=== PATIENT | male | born 1965 | race Caucasian/White ===

== ENCOUNTER 2019-04-28 18:05 | Inpatient (IN) | payer OTHER ==
[~2019-04-28] VITALS: Ht 167.6 cm; Wt 104.8 kg
--- OUTSIDE RECORDS SUMMARY | 2019-04-28 18:08 | XMS REPORT ---
Author Author [facility] Address Unknown Phone Unavailable Care Team Providers Care Rubber Tire Curer Name Role Phone Unavailable Unavailable Problems This patient has no known problems. Allergies, Adverse Reactions, Alerts This patient has no known allergies or adverse reactions. Medications This patient has no known medications. Encounters Start Date/Time End Date/Time Encounter Type Admission Type Attending Clinicians [facility] Facility Care Department Encounter ID 2017-07-27 00:00:00 2017-07-28 00:00:00 [facility]patient [facility] [id number]
--- OUTSIDE RECORDS SUMMARY | 2019-04-28 18:08 | XMS REPORT | Clinical Summary ---
Author Author [facility] Address Unknown Phone Unavailable Care Team Providers Care X Ray Equipment Tester Name Role Phone Alfonso Portillo MD PCP Allergies Comments Active Allergy Reactions Severity Noted Date Penicillins 06/08/2017 Medications No known medications Active Problems Problem Noted Date Intracranial mass 06/09/2017 Diabetic ketoacidosis without coma 06/08/2017 Hypokalemia 06/08/2017 Anemia 06/08/2017 Social History Date Tobacco Use Types Packs/Day Years Used Current Every Day Smoker Cigarettes 1 Alcohol Use Drinks/Week oz/Week Comments No Sex Assigned at Date Recorded Not on file Industry Job Start Date Occupation Not on file Not on file Not on file Travel End Travel History Travel Start No recent travel history available. Last Filed Vital Signs Not on file Plan of Treatment Health Maintenance Due Date Last Done Comments DIABETIC RETINAL EYE EXAM 1964 DIABETIC FOOT EXAM 1974 URINE MICROALBUMIN 1974 COLONOSCOPY SCREENING 2014 SHINGLES VACCINES (#1) 2014 INFLUENZA VACCINE 05/20/2019 Results Not on fileafter 04/27/2018 Insurance Type Payer Benefit Subscriber ID Effective Phone Address Plan / Dates Group [facility] MEDICAID [facility] xxxxxxxxx 2017-P COMM STAR+ resent JEFFREY Advance Directives Patient has advance care planning documents on file. For more information, sushma jaffe contact: Jamie Montalvo [address] [place] [id number]
[2019-04-28 19:37] LABS: BASOPHILS # (AUTO) 0.1 (0.0-0.1); BASOPHILS % 1.4 % (0.0-1.0); EOSINOPHILS # (AUTO) 0.3 (0.0-0.4); EOSINOPHILS % 2.8 % (0.0-6.0); HEMATOCRIT 36.1 % (38.2-49.6); HEMOGLOBIN 11.5 g/dL (14.0-18.0); LYMPHOCYTES # (AUTO) 2.3 (1.0-3.2); LYMPHOCYTES % 25.4 % (18.0-39.1); MEAN CORPUSCULAR HEMOGLOBIN 26.4 pg (28-32); MEAN CORPUSCULAR HGB CONC 31.9 g/dL (31-35); MEAN CORPUSCULAR VOLUME 82.8 fL (81-99); MONOCYTES # (AUTO) 0.8 (0.2-0.8); MONOCYTES % 8.4 % (4.4-11.3); NEUTROPHILS # (AUTO) 5.6 (2.1-6.9); NEUTROPHILS % 61.3 % (38.7-80.0); PLATELET COUNT 285 x10e3/uL (140-360); RED BLOOD COUNT 4.36 x10e6/uL (4.3-5.7); RED CELL DISTRIBUTION WIDTH 15.5 % (11.7-14.4)
[2019-04-28 19:53] LABS: ALBUMIN 2.9 g/dL (3.5-5.0); ALBUMIN/GLOBULIN RATIO 0.5 (0.8-2.0); ANION GAP 14.9 mmol/L (8-16); CALCIUM 9.1 mg/dL (8.4-10.2); CREATININE, SERUM 2.34 mg/dL (0.72-1.25); POTASSIUM 3.9 mmol/L (3.5-5.1)
[2019-04-28] MEDS ORDERED: INSULIN REGULAR, HUMAN 100 UNIT/1 ML 3ML VIAL IV ONE (20:30)
[2019-04-28] MEDS ORDERED: SODIUM CHLORIDE 0.9% 1000ML 1,000 ML IV SCH (21:15)
[2019-04-28] MEDS ORDERED: CEFEPIME HCL 1 GM VIAL IV SCH (21:45)
--- OUTSIDE RECORDS SUMMARY | 2019-04-28 21:45 | XMS REPORT | Clinical Summary ---
Author Author [facility] Organization [facility] Address Unknown Phone Unavailable Care Team Providers Care Corrections Identification Technician Name Role Phone Alfonso Portillo MD PCP [...] Effective Phone Address Plan / Dates Group [facility] MEDICAID [facility] xxxxxxxxx 2017-P COMM STAR+ resent JEFFREY Advance Directives Patient has advance care planning documents on file. For more information, sushma jaffe contact: Jamie Montalvo [address] [place] [id number]
[2019-04-28] MEDS: CEFEPIME 1GM/NS 0.9% 50 ML 50 ML IV SCH (21:53)
[2019-04-28] MEDS: VANCOMYCIN 1GM/NS 250 ML 250 ML IV SCH (22:48)
[2019-04-28 23:01] LABS: BILIRUBIN,URINE NEGATIVE (NEGATIVE); CLARITY,URINE CLEAR (CLEAR); COLOR,URINE YELLOW (YELLOW); KETONES,URINE NEGATIVE (NEGATIVE); LEUKOCYTE ESTERASE ,URINE NEGATIVE (NEGATIVE); NITRITE,URINE NEGATIVE (NEGATIVE); PROTEIN,URINE DIPSTICK 1+ (NEGATIVE); URINE UROBILINOGEN 1 mg/dL (0.2 - 1)
[2019-04-28 23:34] LABS: BACTERIA,URINE FEW /HPF; EPITHELIAL CELLS,URINE MODERATE /LPF; RBC,URINE 21-50 /HPF (0-5); TRANSITIONAL EPI CELLS,URINE FEW; WBC,URINE (MAN) 21-50 /HPF (0-5)
[2019-04-28 23:35] LABS: MUCUS,URINE FEW (RARE)
[2019-04-29] MEDS: SODIUM CHLORIDE 0.9% 1000ML 1,000 ML IV SCH ×2 (02:00→11:34)
[2019-04-29 07:03] LABS: BASOPHILS # (AUTO) 0.1 (0.0-0.1); BASOPHILS % 0.9 % (0.0-1.0); EOSINOPHILS # (AUTO) 0.2 (0.0-0.4); EOSINOPHILS % 2.7 % (0.0-6.0); HEMATOCRIT 32.7 % (38.2-49.6); HEMOGLOBIN 10.6 g/dL (14.0-18.0); LYMPHOCYTES # (AUTO) 1.8 (1.0-3.2); LYMPHOCYTES % 20.8 % (18.0-39.1); MEAN CORPUSCULAR HEMOGLOBIN 26.6 pg (28-32); MEAN CORPUSCULAR HGB CONC 32.4 g/dL (31-35); MEAN CORPUSCULAR VOLUME 82.2 fL (81-99); MONOCYTES # (AUTO) 0.8 (0.2-0.8); MONOCYTES % 9.6 % (4.4-11.3); NEUTROPHILS # (AUTO) 5.6 (2.1-6.9); NEUTROPHILS % 65.5 % (38.7-80.0); PLATELET COUNT 211 x10e3/uL (140-360); RED BLOOD COUNT 3.98 x10e6/uL (4.3-5.7); RED CELL DISTRIBUTION WIDTH 15.5 % (11.7-14.4)
--- NOTE | 2019-04-29 07:05 | NUR ---
walking rounds with nancy velasco
--- NOTE | 2019-04-29 08:18 | NUR ---
PATIENT IN NO DISTRESS, RESTING COMFORTABLY. BREAKFAST TRAY PROVIDED AT THIS TIME
[2019-04-29] MEDS: CEFEPIME 1GM/NS 0.9% 50 ML 50 ML IV SCH ×2 (09:36→21:20)
[2019-04-29] MEDS ORDERED: DEXTROSE 50% SYRINGE 50 ML IV PRN ×2 (09:45→10:30)
--- NOTE | 2019-04-29 09:57 | Diagnostic Imaging Report ---
Examination: Single AP view of the chest. COMPARISON: None. INDICATION: Congestive heart failure DISCUSSION: The lungs are well-inflated. No focal airspace consolidation, pleural effusion, or pneumothorax. Tortuosity of the thoracic aorta with otherwise normal heart size. No overt pulmonary edema. No acute osseous abnormality. Healed fracture deformities of the left fourth, fifth, and sixth ribs posteriorly. IMPRESSION: No acute cardiopulmonary abnormality. No pulmonary edema. Signed by: Dr. Enrique Miramontes M.D. on 04/29/2019 9:54 AM
[2019-04-29 09:59] LABS: ALBUMIN 2.5 g/dL (3.5-5.0); ALBUMIN/GLOBULIN RATIO 0.5 (0.8-2.0); ANION GAP 11.8 mmol/L (8-16); CALCIUM 8.5 mg/dL (8.4-10.2); CREATININE, SERUM 1.57 mg/dL (0.72-1.25); POTASSIUM 3.8 mmol/L (3.5-5.1)
[2019-04-29] MEDS ORDERED: ATENOLOL-CHLOR1 EAC1 PO (10:47)
[2019-04-29] MEDS ORDERED: PROVENTIL HFA6.7 GM INH (10:47)
[2019-04-29] MEDS ORDERED: ATORVASTATIN CA20 MG PO ×2 (10:47→10:50)
[2019-04-29] MEDS ORDERED: NORCO 10-325 T1 EACH PO (10:47)
[2019-04-29] MEDS ORDERED: OMEPRAZOLE40 MG PO (10:48)
[2019-04-29] MEDS ORDERED: METFORMIN HCL500 MG PO (10:48)
[2019-04-29] MEDS ORDERED: SPIRIVA18 MCG INH (10:49)
[2019-04-29] MEDS ORDERED: VASOTEC10 M1 PO (10:49)
[2019-04-29] MEDS ORDERED: TRULICITY IJ (10:52)
[2019-04-29] MEDS ORDERED: LANTUS 3ML100 UNITS/ IJ (10:53)
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
[2019-04-29] MEDS: INSULIN REGULAR, HUMAN 100 UNIT/1 ML 3ML VIAL SQ SCH ×3 (11:36→21:00)
[2019-04-29 11:51] LABS: CHOL/HDL RATIO 4.8 (3.9-4.7)
--- NOTE | 2019-04-29 14:15 | NUR ---
Recvd patient from ER, AAOx3, Assisted him to bed, denies any pain not in any distress, call light in reach, keep monitoring
[2019-04-29 15:32] VITALS: BP 129/78
[2019-04-29 15:36] VITALS: BP 129/70
--- NOTE | 2019-04-29 17:20 | NUR ---
patient was trying to go out to smoke, redirected him paged Dr Portillo and recvd new order for nicotine patch
[2019-04-29] MEDS: NICOTINE 21 MG/EA PATCH TOP SCH (18:24)
--- NOTE | 2019-04-29 19:15 | NUR ---
Received patient awake on bed, with ongoing IV fluids, no complaints of pain at this time, right thigh wound noted open to air. CAll light within easy reach, advised to call for assistance when needed, will continue to monitor closely
[2019-04-29 20:00] VITALS: BP 137/70
--- NOTE | 2019-04-29 20:00 | NUR ---
464, paged MD Portillo
--- NOTE | 2019-04-29 20:18 | NUR ---
spoke to DR. Portillo with orders to give Humalog 30 units SQ now and give scheduled Lantus
[2019-04-29] MEDS ORDERED: INSULIN LISPRO 100 UNIT/1 ML 3ML VIAL SQ ONE ×2 (20:30)
[2019-04-29 21:00] VITALS: BP 137/70
[2019-04-29] MEDS ORDERED: INSULIN GLARGINE 100 UNITS/ML VIAL SQ SCH (21:00)
--- NOTE | 2019-04-29 21:31 | NUR ---
Blood sugar rechecked 354
[2019-04-29] MEDS: VANCOMYCIN 1GM/NS 250 ML 250 ML IV SCH (22:00)
[2019-04-29] MEDS ORDERED: ACETAMINOPHEN 325 MG TAB PO PRN (22:45)
[2019-04-30] VITALS: BP 133/80
[2019-04-30] MEDS: SODIUM CHLORIDE 0.9% 1000ML 1,000 ML IV SCH (02:00)
[2019-04-30 04:00] VITALS: BP 149/63
[2019-04-30 06:00] LABS: BASOPHILS # (AUTO) 0.1 (0.0-0.1); BASOPHILS % 1.3 % (0.0-1.0); EOSINOPHILS # (AUTO) 0.3 (0.0-0.4); EOSINOPHILS % 3.9 % (0.0-6.0); HEMATOCRIT 33.7 % (38.2-49.6); HEMOGLOBIN 10.9 g/dL (14.0-18.0); LYMPHOCYTES # (AUTO) 1.4 (1.0-3.2); LYMPHOCYTES % 20.5 % (18.0-39.1); MEAN CORPUSCULAR HEMOGLOBIN 26.4 pg (28-32); MEAN CORPUSCULAR HGB CONC 32.3 g/dL (31-35); MEAN CORPUSCULAR VOLUME 81.6 fL (81-99); MONOCYTES # (AUTO) 0.6 (0.2-0.8); MONOCYTES % 8.9 % (4.4-11.3); NEUTROPHILS # (AUTO) 4.5 (2.1-6.9); NEUTROPHILS % 65.1 % (38.7-80.0); PLATELET COUNT 218 x10e3/uL (140-360); RED BLOOD COUNT 4.13 x10e6/uL (4.3-5.7); RED CELL DISTRIBUTION WIDTH 15.4 % (11.7-14.4)
[2019-04-30 06:17] LABS: ALANINE AMINOTRANSFERASE 32 IU/L (0-55); ALBUMIN 2.4 g/dL (3.5-5.0); ALBUMIN/GLOBULIN RATIO 0.5 (0.8-2.0); ALKALINE PHOSPHATASE 217 IU/L (40-150); ANION GAP 11.4 mmol/L (8-16); BLOOD UREA NITROGEN 16 mg/dL (7-26); BUN/CREATININE RATIO 15 (6-25); CALCIUM 8.8 mg/dL (8.4-10.2); CARBON DIOXIDE 26 mmol/L (22-29); CHLORIDE 103 mmol/L (98-107); CREATININE, SERUM 1.08 mg/dL (0.72-1.25); EST GLOMERULAR FILTRATION RATE > 60 ML/MIN (60-); GLUCOSE 109 mg/dL (74-118); POTASSIUM 3.4 mmol/L (3.5-5.1); SODIUM 137 mmol/L (136-145)
[2019-04-30 06:58] LABS: CHOL/HDL RATIO 4.8 (3.9-4.7)
[2019-04-30] MEDS: INSULIN REGULAR, HUMAN 100 UNIT/1 ML 3ML VIAL SQ SCH ×3 (07:30→16:45)
[2019-04-30 08:29] VITALS: BP 157/76
[2019-04-30 09:00] VITALS: BP 157/76
[2019-04-30] MEDS: CEFEPIME 1GM/NS 0.9% 50 ML 50 ML IV SCH (09:00)
[2019-04-30] MEDS: NICOTINE 21 MG/EA PATCH TOP SCH (09:00)
[2019-04-30] MEDS ORDERED: POTASSIUM CHLORIDE 10MEQ EA PO ONE (09:00)
[2019-04-30] MEDS: ALBUTEROL SULFATE HFA 8GM INHALATION AEROSOL INH SCH ×2 (11:00→15:00)
[2019-04-30 11:35] VITALS: BP 128/75
--- NOTE | 2019-04-30 13:58 | NUR ---
patient alert and oriented, leaving unit on stretcher to surgery.
[2019-04-30] MEDS ORDERED: BUPIVACAINE 0.25%/EPI 30ML SDV INJ ONE (14:47)
[2019-04-30] MEDS ORDERED: BUPIVACAINE 0.25% 30ML SDV INJ ONE (14:47)
[2019-04-30] MEDS ORDERED: LIDOCAINE HCL 1% LOCAL INJ 20 ML VIAL ONE (15:14)
[2019-04-30] MEDS ORDERED: LIDOCAINE 1% W/EPINEPHRINE 20 ML VIAL ONE (15:14)
[2019-04-30] MEDS ORDERED: HYDROCODONE/APAP 7.5MG-325MG 1 EA TAB PO PRN (15:30)
[2019-04-30] MEDS ORDERED: FENTANYL CITRATE/PF 100MCG/2 ML INJ ONE ×2 (15:40→19:11)
[2019-04-30] MEDS ORDERED: HYDROMORPHONE 2MG/ML 2 MG/ML ML ONE (15:59)
--- NOTE | 2019-04-30 16:10 | NUR ---
patient arrived from PACU, alert and oriented via stretcher. Patient back to bed, call lombardo within reach and bed in lowest position.
[2019-04-30 16:15] VITALS: BP 118/68
[2019-04-30] MEDS ORDERED: CIPRO500 MG PO (16:24)
[2019-04-30] MEDS ORDERED: BACTRIM DS TAB1 EACH PO (16:24)
--- NOTE | 2019-04-30 17:50 | NUR ---
patient alert and oriented. discharge instructions given at this time, patient verbalized understanding. IV discontinued, catheter in tact and small dressing applied. Patient to be wheeled out to personal auto for mother in law to drive home.
[2019-04-30] MEDS ORDERED: MIDAZOLAM HCL 2 MG/2 ML VIAL ONE (19:11)
[2019-04-30] MEDS ORDERED: ATORVASTATIN 20 MG TAB PO SCH (21:00)
--- NOTE | 2019-04-30 21:41 | Operative Report ---
DATE OF PROCEDURE: 04/30/2019 SURGEON: Anton Gupta MD PREOPERATIVE DIAGNOSIS: Traumatic necrotic wound of the right lower thigh. POSTOPERATIVE DIAGNOSIS: Traumatic necrotic wound of the right lower thigh. OPERATION PERFORMED: Excision of traumatic wound of the right side and drainage of seroma of the right thigh. ANESTHESIA: Local 1% Xylocaine and MAC. COMPLICATIONS: None. ESTIMATED BLOOD LOSS: Minimal. DESCRIPTION OF THE PROCEDURE: With the patient lying in bed in the supine position under good IV sedation, the right leg and thigh were prepped with Betadine solution and draped in the usual manner. There was a necrotic wound in the medial lower aspect of the right thigh. All of the necrotic tissue was then resected including the skin after infiltrating the whole area with 1% plain Xylocaine. All of the skin surrounding the wound was then excised and all the necrotic subcutaneous material was similarly resected. A pocket of a large seroma extending up into the upper thigh was then entered and all of this was aspirated and once all of the necrotic subcutaneous tissue was resected, the wound was then copiously irrigated with dilute Betadine solution and packed with Betadine gauze. A dressing was applied. The sponge, lap, and needle count was correct. The patient tolerated the procedure well and returned to the recovery room in stable condition. Anton Gupta MD JLR/MODL /[id number]
[2019-05-01] MEDS ORDERED: TIOTROPIUM 18 MCG INH POWDER INH SCH (06:00)
[2019-05-01] MEDS ORDERED: PANTOPRAZOLE SOD 40 MG TABEC PO SCH (07:30)
[2019-05-01] MEDS ORDERED: INSULIN GLARGINE IJ SCH (09:00)
[2019-05-02] MEDS ORDERED: TRULICITY SC SCH (09:00)
--- NOTE | 2019-05-03 13:26 | NUR ---
Dictated DC summary: [id number]
--- NOTE | 2019-05-03 14:14 | Discharge Summary ---
ADMIT DIAGNOSES: 1. Right thigh puncture wound with surrounding cellulitis. 2. Acute on chronic renal failure. 3. Stage 3 chronic kidney disease. 4. Type 2 diabetes mellitus with severe diabetic peripheral neuropathy. 5. Hypertensive heart disease. 6. Obesity, BMI of 36. 7. Tobacco abuse. DISCHARGE DIAGNOSES: 1. Status post excision of traumatic right thigh wound with drainage of seroma. 2. Right thigh wound with surrounding cellulitis, resolving. 3. Acute renal failure, resolved. 4. Type 2 diabetes mellitus. 5. Obesity, BMI of 36. 6. Hypothyroidism. HOSPITAL COURSE: This is a 53-year-old white man, who has known history of uncontrolled type 2 diabetes mellitus and tobacco abuse. The patient was admitted with a diagnosis of traumatic necrotic wound of the right medial thigh. The patient also found to have cellulitis surrounding this traumatic wound. During this hospitalization, the patient improved clinically with intravenous antibiotics, namely cefepime and vancomycin. The patient was seen by general surgeon during this hospitalization namely Dr. Anton Gupta who performed successful excision of the right thigh traumatic wound with drainage of the right thigh seroma. The patient tolerated the surgery quite well. On admission, the patient was found to have a BUN and creatinine of 26 and 2.34. The patient was started on intravenous fluids, which greatly improved his renal function. The patient's glucose was also better controlled once he was restarted on his home insulin therapy and with intravenous fluids. The patient's blood cultures did not reveal any growth during the hospitalization. On day of discharge, his BUN and creatinine was 16 and 1.08 respectively . The patient's AST and ALT on discharge were 46 and 32 respectively. The patient was found to have a hemoglobin A1c of 15.1% during this hospitalization. On discharge, the patient's LDL cholesterol was 100 mg/dL with triglycerides of 116 mg/dL. DISCHARGE CONDITION: The patient's condition on discharge was stable. DISCHARGE MEDICATIONS: 1. Ciprofloxacin 500 mg p.o. b.i.d. for 14 days. 2. Bactrim DS one p.o. b.i.d. for 14 days. 3. Albuterol inhaler two puffs q.i.d. as needed for shortness of breath and wheezing. 4. Austin 7.5/325, one q.6 hours p.r.n. pain. 5. Spiriva inhaler one puff daily. 6. Pantoprazole 40 mg daily. 7. Lantus insulin 120 units subcutaneous daily. 8. Omeprazole 40 mg daily. 9. Trulicity 1.5 mg subcutaneous weekly. 10. Albuterol nebulized treatments as needed for severe shortness of breath and wheezing. 11. Metformin 1000 mg b.i.d. 12. Omeprazole 40 mg daily. The patient was told to hold the following medications until further notice: Enalapril and atenolol/chlorthalidone because of his acute renal failure. FOLLOWUP INSTRUCTIONS: The patient was instructed to follow up with general surgeon who performed the wound excision on Friday, May 03, 2019. The patient is instructed to follow up with his primary care physician and myself Dr. Alfonso Portillo within 10-14 days. Tobacco cessation was highly recommended to the patient. MD DESIRE Dodge/LEE /[id number] cc: Anton Gupta MD MTDD
== END 2019-04-30 17:50 | disposition home or self-care (01) | DRG 571 ==
LOC: ER 18:05 → ERHOLD 21:42 → OBSVTOIN 21:44 → IMCU 04-29 14:05
PROVIDERS: ADMIT Internal Medicine; ATTEND Internal Medicine
PROC: 0JBL0ZZ Excision of Right Upper Leg Subcutaneous Tissue and Fascia, Open Approach (ICD-10-PCS; principal; 2019-04-30 14:50)
DX: S71.131A Puncture wound without foreign body, right thigh, initial encounter (principal); L03.115 Cellulitis of right lower limb; N17.9 Acute kidney failure, unspecified; W22.8XXA Striking against or struck by other objects, initial encounter; Y93.89 Activity, other specified; Z72.0 Tobacco use; E11.40 Type 2 diabetes mellitus with diabetic neuropathy, unspecified; Z79.4 Long term (current) use of insulin; E78.5 Hyperlipidemia, unspecified; E66.9 Obesity, unspecified; J42 Unspecified chronic bronchitis; E11.22 Type 2 diabetes mellitus with diabetic chronic kidney disease; I13.10 Hypertensive heart and chronic kidney disease without heart failure, with stage 1 through stage 4 chronic kidney disease, or unspecified chronic kidney disease; N18.3 Chronic kidney disease, stage 3 (moderate); Z88.0 Allergy status to penicillin; Z68.37 Body mass index [BMI] 37.0-37.9, adult; E03.9 Hypothyroidism, unspecified
CPT/HCPCS: 36415; 71045; 80053; 80061; 81001; 82948; 83036; 85025; 87040; 87086; 99284; J0692; J1815; J1817; J2001; J2250; J3010; J3370; J7030

== ENCOUNTER 2019-06-23 16:21 | Observation (INO) | payer OTHER ==
[~2019-06-23] VITALS: Ht 172.7 cm; Wt 121.6 kg
[~2019-06-23 16:21] MED LIST: ATENOLOL-CHLOR1 EAC1 PO; ATORVASTATIN CA20 MG PO; BACTRIM DS TAB1 EACH PO; CIPRO500 MG PO; LANTUS 3ML100 UNITS/ IJ; METFORMIN HCL500 MG PO; NORCO 10-325 T1 EACH PO; OMEPRAZOLE40 MG PO; PROVENTIL HFA6.7 GM INH; SPIRIVA18 MCG INH; TRULICITY IJ; VASOTEC10 M1 PO
--- OUTSIDE RECORDS SUMMARY | 2019-06-23 16:24 | XMS REPORT | Clinical Summary ---
Author Author [facility] Organization [facility] Address Unknown Phone Unavailable Care Team Providers Care Turret Lathe Set Up Operator Name Role Phone Alfonso Portillo MD PCP Allergies Comments Active Allergy Reactions Severity Noted Date Penicillins 06/08/2017 Medications No known medications Active Problems Problem Noted Date Intracranial mass 06/09/2017 Diabetic ketoacidosis without coma 06/08/2017 Hypokalemia 06/08/2017 Anemia 06/08/2017 Social History Date Tobacco Use Types Packs/Day Years Used Current Every Day Smoker Cigarettes 1 Drinks/Week oz/Week Comments Alcohol Use No Sex Assigned at Date Recorded Not [...] INFLUENZA VACCINE 05/20/2019 Results Not on fileafter 06/22/2018 Insurance Type Payer Benefit Subscriber ID Effective Phone Address Plan / Dates Group [facility] MEDICAID [facility] xxxxxxxxx 2017-P COMM STAR+ resent JEFFREY Advance Directives For more information, please contact: [phone] 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
[2019-06-23] MEDS ORDERED: LABETALOL HCL 5 MG/ML 20ML VIAL IV ONE (16:44)
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
--- NOTE | 2019-06-23 17:17 | Diagnostic Imaging Report ---
EXAMINATION: CT of the abdomen and pelvis without contrast. TECHNIQUE: Helical CT images of the abdomen and pelvis were performed from the lung bases to the lesser trochanters. No intravenous contrast was given per renal stone protocol. Coronal and sagittal reformatted images were obtained.Dose modulation, iterative reconstruction, and/or weight based adjustment of the mA/kV was utilized to reduce the radiation dose to as low as reasonably achievable. COMPARISON: None. CLINICAL HISTORY:Abdominal pain DISCUSSION: ABSENCE OF INTRAVENOUS CONTRAST DECREASES SENSITIVITY FOR DETECTION OF FOCAL LESIONS AND VASCULAR PATHOLOGY. ABDOMEN/PELVIS: LOWER THORAX: Unremarkable. HEPATOBILIARY:Cirrhotic morphology. No discrete mass. Calcified gallstone. SPLEEN: No splenomegaly. PANCREAS: No focal masses or ductal dilatation. ADRENALS: No adrenal nodules. KIDNEYS/URETERS: No hydronephrosis, stones, or solid mass lesions. PELVIC ORGANS/BLADDER: The bladder is normal. PERITONEUM/RETROPERITONEUM: Large amount of ascites. LYMPH NODES: No intra-abdominal,retroperitoneal, pelvic or inguinal lymphadenopathy. VESSELS: Limited evaluation, vascular calcifications. GI TRACT: No distention or wall thickening. BONES AND SOFT TISSUES: No bony destructive lesions. No soft tissue abnormalities. IMPRESSION: Cirrhotic liver with ascites. Signed by: Dr. Tristan Nguyễn M.D. on 06/23/2019 5:14 PM
[2019-06-23] MEDS ORDERED: LABETALOL HCL 20 ML ONE (17:34)
[2019-06-23] MEDS ORDERED: DIPHENHYDRAMINE HCL INJ 50 MG/ML VIAL IV PRN (17:45)
[2019-06-23] MEDS ORDERED: SODIUM CHLORIDE FLUSH 10 ML SYR INJ PRN (17:45)
[2019-06-23] MEDS ORDERED: LACTULOSE SYRUP 20 GM/30 ML UDC PO PRN (17:45)
--- OUTSIDE RECORDS SUMMARY | 2019-06-23 17:56 | XMS REPORT | Clinical Summary ---
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
--- NOTE | 2019-06-23 18:00 | NUR ---
PT TO BE ADMITTED, PT AWARE OF POC, PT VOICES NO COMPLAINTS AT THIS TIME.
--- NOTE | 2019-06-23 18:11 | NUR ---
[facility] CALLED FOR TRANSPORT 45MIN ETA
--- NOTE | 2019-06-23 18:20 | NUR ---
REPORT CALLED TO DILEEP ARANDA
[2019-06-23] MEDS ORDERED: DEXTROSE 50% SYRINGE 50 ML IV PRN (18:30)
[2019-06-23] MEDS ORDERED: MUPIROCIN 2% OINT 22 GM TUBE TOP ONE (18:30)
[2019-06-23 19:35] VITALS: BP 171/85
--- NOTE | 2019-06-23 19:38 | NUR ---
Patient arrived from free standing ER. Patient is A/Ox4, with low back pain at 6/10. Patient admitted for volume overland, HTN, and ascites. Bed height low, side rails up x2, wheels lock and call light within reach.
[2019-06-23 19:46] VITALS: BP 171/85
[2019-06-23 20:05] VITALS: BP 171/85
[2019-06-23] MEDS: MORPHINE SULFATE 2 MG/ML SYR 1ML IV PRN (20:36)
[2019-06-23] MEDS: INSULIN REGULAR, HUMAN 100 UNIT/1 ML 3ML VIAL SQ SCH (21:00)
[2019-06-23] MEDS ORDERED: ZOLPIDEM TARTRATE 5 MG TAB PO PRN (21:00)
[2019-06-24] VITALS (8 sets, daily range): BP systolic 130–178; BP diastolic 67–95
[2019-06-24] MEDS: MORPHINE SULFATE 2 MG/ML SYR 1ML IV PRN ×4 (03:34→23:20)
[2019-06-24 07:00] LABS: BASOPHILS # (AUTO) 0.1 (0.0-0.1); BASOPHILS % 0.9 % (0.0-1.0); EOSINOPHILS # (AUTO) 0.4 (0.0-0.4); HEMATOCRIT 30.2 % (38.2-49.6); HEMOGLOBIN 9.5 g/dL (14.0-18.0); LYMPHOCYTES # (AUTO) 1.3 (1.0-3.2); MEAN CORPUSCULAR HEMOGLOBIN 25.7 pg (28-32); MEAN CORPUSCULAR HGB CONC 31.5 g/dL (31-35); MEAN CORPUSCULAR VOLUME 81.6 fL (81-99); MONOCYTES # (AUTO) 1.2 (0.2-0.8); MONOCYTES % 12.2 % (4.4-11.3); NEUTROPHILS # (AUTO) 6.5 (2.1-6.9); NEUTROPHILS % 68.5 % (38.7-80.0); PLATELET COUNT 251 x10e3/uL (140-360)
[2019-06-24 07:17] LABS: INR 1.13; PROTHROMBIN TIME 15.1 seconds (11.9-14.5)
[2019-06-24 07:25] LABS: ALANINE AMINOTRANSFERASE 23 IU/L (0-55); ALBUMIN 1.7 g/dL (3.5-5.0); ALBUMIN/GLOBULIN RATIO 0.4 (0.8-2.0); ALKALINE PHOSPHATASE 206 IU/L (40-150); ANION GAP 11.9 mmol/L (8-16); BLOOD UREA NITROGEN 11 mg/dL (7-26); BUN/CREATININE RATIO 15 (6-25); CALCIUM 8.4 mg/dL (8.4-10.2); CARBON DIOXIDE 26 mmol/L (22-29); CHLORIDE 105 mmol/L (98-107); CREATININE, SERUM 0.75 mg/dL (0.72-1.25); EST GLOMERULAR FILTRATION RATE > 60 ML/MIN (60-); GLUCOSE 87 mg/dL (74-118); POTASSIUM 3.9 mmol/L (3.5-5.1); SODIUM 139 mmol/L (136-145)
[2019-06-24] MEDS: INSULIN REGULAR, HUMAN 100 UNIT/1 ML 3ML VIAL SQ SCH ×4 (07:30→20:48)
[2019-06-24] MEDS ORDERED: SPIRONOLACTONE 25 MG TAB PO SCH (09:00)
--- NOTE | 2019-06-24 09:13 | NUR ---
SPOKE WITH GLORIA IN ULTRASOUND, UNABLE TO GIVE TIME FOR PROCEDURE AT THIS TIME, WILL CALL NURSE BACK, ATTEMPTED TO GET CONSENT SIGNED FOR PARACENTESIS, PT STATES NO "DR HAS EXPLAINED PROCEDURE TO ME", EDUCATED THAT MD WILL EXPLAIN PROCEDURE BEFORE GETTING CONSENT SIGNED, MEDICATED PER MD ORDER FOR 03/29 "ALL OVER PAIN", EDUCATED TO CALL FOR ASSISTANCE BEFORE GETTING UP, VERBALIZED UNDERSTANDING, CALL LIGHT WITHIN REACH
[2019-06-24] MEDS ORDERED: FUROSEMIDE INJ 10 MG/ML 4 ML VIAL IV NR (10:00)
[2019-06-24] MEDS ORDERED: SODIUM CHLORIDE 0.9% 250ML 250 ML ONE (10:50)
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
[2019-06-24] MEDS: CEFTRIAXONE SOD 1 GM/NS 50 ML 50 ML IV SCH ×2 (11:30→20:49)
--- NOTE | 2019-06-24 12:39 | Diagnostic Imaging Report ---
EXAM: US ABDOMEN COMPLETE DATE: 06/24/2019 12:00 AM INDICATION: Cirrhosis, ascites COMPARISON: CT abdomen pelvis of 06/23/2019 TECHNIQUE: Transverse and longitudinal wilson scale and color doppler sonographic images of the upper abdomen were obtained. FINDINGS: There is no evidence of fluid or masses seen in the area of clinical concern in the right lower quadrant. LIVER 16.4 cm in the right midclavicular line. Coarse echogenicity of the liver with nodular surface contour. SPLEEN 13.5 cm in maximum diameter. Normal echogenicity, no masses. GALLBLADDER Cholelithiasis. No gallbladder wall thickening, distension, or pericholecystic fluid. NEgative reported sonographic Mckee's sign. Gallbladder wall measures 3 mm. BILE DUCTS No intra nor extra-hepatic biliary dilation. Common bile duct measures 0.3cm PANCREAS: Visualized portions are normal. RIGHT KIDNEY: 12.2 cm Echogenicity: Normal Collecting System: No hydronephrosis Stones: None Cyst/Mass: None LEFT KIDNEY: 11.6 cm Echogenicity: Normal Collecting System: No hydronephrosis Stones: None Cyst/Mass: None VESSELS: Aorta: Visualized portions are within normal size limits Inferior Vena Cava: Visualized portions are normal Main Portal Vein: 1.1 cm, normal size with hepatopetal flow. FREE FLUID: None IMPRESSION: Liver cirrhosis. No focal mass lesion. Cholelithiasis. No specific sonographic evidence of cholecystitis. Signed by: Kathryn Kaminski MD on 06/24/2019 12:36 PM
--- NOTE | 2019-06-24 13:38 | NUR ---
WHEELED OFF UNIT VIA WC FOR PARACENTESIS, NO CHANGE IN CONDITION
--- NOTE | 2019-06-24 15:00 | NUR ---
BACK IN ROOM VIA WC, TOLERATED FOOD INTAKE, CALL LIGHT WITHIN REACH
--- NOTE | 2019-06-24 15:21 | Diagnostic Imaging Report ---
PROCEDURE: Ultrasound-guided diagnostic and therapeutic paracentesis Procedural Personnel Attending physician(s): Kathryn Kaminski MD Pre-procedure diagnosis: Ascites Post-procedure diagnosis: Same Indication: Ascites with pain or pressure symptoms Additional clinical history: None Complications: No immediate complications. IMPRESSION: Ultrasound-guided paracentesis with drainage of 8400 mL of serous fluid. Samples sent for analysis. Plan: Resume care by clinical team. PROCEDURE SUMMARY: - Limited abdominal ultrasound - Ultrasound-guided paracentesis - Additional procedure(s): None PROCEDURE DETAILS: Pre-procedure Consent: Informed consent for the procedure including risks, benefits and alternatives was obtained and time-out was performed prior to the procedure. Preparation: The site was prepared and draped using maximal sterile barrier technique including cutaneous antisepsis. Anesthesia/sedation Level of anesthesia/sedation: No sedation Anesthesia/sedation administered by: Not applicable Initial abdominal ultrasound Initial abdominal ultrasound was performed. Findings: Large ascites. A safe window for paracentesis was identified. Paracentesis Local anesthesia was administered. The peritoneal cavity was accessed and fluid return confirmed position. Ascites was drained. The catheter was then removed, and a sterile bandage was applied. Paracentesis access technique: Real-time ultrasound guidance Catheter placed: 5F Yueh Post-drainage ultrasound: Not performed Additional Details Additional description of procedure: None Equipment details: None Specimens removed: Abdominal fluid Estimated blood loss (mL): Less than 10 Standardized report: [email or web address] Attestation Signer name: Kathryn Kaminski MD I attest that I was present for the entire procedure. I reviewed the stored images and agree with the report as written. Signed by: Kathryn Kaminski MD on 06/24/2019 3:18 PM
--- NOTE | 2019-06-24 15:36 | NUR ---
PT AMBULATING IN HALLWAY, STATES "GOING TO SEE MY SISTER AT FRONT ", AMBULATED TO FRONT OF HOSPITAL, FRONT NOTIFIED NURSE THAT PT IS SMOKING ON FRONT SIDEWALK, NURSE SPOKE WITH PT , MADE AWARE THAT THIS IS A NON SMOKING FACILITY, PT VERBALIZED UNDERSTANDING HE CONTINUED TO SMOKE, SECURITY NOW SPEAKING WITH PT
--- NOTE | 2019-06-24 16:10 | NUR ---
BACK IN ROOM, ECHO IN PROGRESS
[2019-06-24 16:27] LABS: BODY FLUID COLOR YELLOW; BODY FLUID TYPE PERITONEAL
[2019-06-24 16:46] LABS: BODY FLUID APPEARANCE CLEAR
[2019-06-24 16:51] LABS: GLUCOSE,BODY FLUID 104 mg/dL
--- NOTE | 2019-06-24 16:59 | NUR ---
DRESSING REINFORCED TO RIGHT LOWER ABD, PT AMBULATING IN HALLWAY, STEADY GAIT,
[2019-06-24 17:06] LABS: RBC,BODY FLUID 18 cells/uL; WBC,BODY FLUID 188 cells/uL
[2019-06-24 17:52] LABS: LYMPHOCYTES,BODY FLUID 50 %; MONO/MACROPHG,BODY FLUID 9 %; NEUTROPHILS,BODY FLUID 16 %; OTHER CELLS,BODY FLUID 25 %
--- NOTE | 2019-06-24 18:45 | NUR ---
Received bedside report from RN. The patient is sitting up on the chair, not in distress. Bed height low, call light within reach, side rails up x2, and wheels lock.
[2019-06-25] VITALS: BP 163/78
[2019-06-25 04:00] VITALS: BP 148/73
[2019-06-25] MEDS: MORPHINE SULFATE 2 MG/ML SYR 1ML IV PRN ×2 (05:03→09:02)
[2019-06-25 05:54] LABS: BASOPHILS # (AUTO) 0.1 (0.0-0.1); BASOPHILS % 0.9 % (0.0-1.0); EOSINOPHILS # (AUTO) 0.4 (0.0-0.4); EOSINOPHILS % 4.1 % (0.0-6.0); HEMATOCRIT 30.7 % (38.2-49.6); HEMOGLOBIN 9.5 g/dL (14.0-18.0); LYMPHOCYTES # (AUTO) 1.5 (1.0-3.2); LYMPHOCYTES % 15.1 % (18.0-39.1); MEAN CORPUSCULAR HEMOGLOBIN 25.5 pg (28-32); MEAN CORPUSCULAR HGB CONC 30.9 g/dL (31-35); MEAN CORPUSCULAR VOLUME 82.5 fL (81-99); MONOCYTES # (AUTO) 1.3 (0.2-0.8); MONOCYTES % 13.2 % (4.4-11.3); NEUTROPHILS # (AUTO) 6.7 (2.1-6.9); NEUTROPHILS % 66.3 % (38.7-80.0); PLATELET COUNT 270 x10e3/uL (140-360); RED BLOOD COUNT 3.72 x10e6/uL (4.3-5.7); RED CELL DISTRIBUTION WIDTH 15.9 % (11.7-14.4)
[2019-06-25 06:18] LABS: ALANINE AMINOTRANSFERASE 21 IU/L (0-55); ALBUMIN 1.7 g/dL (3.5-5.0); ALBUMIN/GLOBULIN RATIO 0.4 (0.8-2.0); ALKALINE PHOSPHATASE 172 IU/L (40-150); ANION GAP 10.9 mmol/L (8-16); BLOOD UREA NITROGEN 11 mg/dL (7-26); BUN/CREATININE RATIO 14 (6-25); CALCIUM 8.1 mg/dL (8.4-10.2); CARBON DIOXIDE 27 mmol/L (22-29); CHLORIDE 101 mmol/L (98-107); CREATININE, SERUM 0.77 mg/dL (0.72-1.25); EST GLOMERULAR FILTRATION RATE > 60 ML/MIN (60-); GLUCOSE 63 mg/dL (74-118); POTASSIUM 3.9 mmol/L (3.5-5.1); SODIUM 135 mmol/L (136-145)
--- NOTE | 2019-06-25 07:18 | NUR ---
RECEIVED PATIENT AWAKE RESTING IN BED NO S/S OF DISTRESS. BED LOW, WHEELS LOCKED, SIDE RAILS X2. CALL LIGHT IN REACH WILL CONTINUE TO MONITOR PATIENT.
[2019-06-25] MEDS: INSULIN REGULAR, HUMAN 100 UNIT/1 ML 3ML VIAL SQ SCH ×2 (07:30→12:38)
[2019-06-25 07:53] VITALS: BP 161/80
--- NOTE | 2019-06-25 07:56 | Discharge Summary ---
ADMIT DIAGNOSES: 1. Cirrhosis with ascites. 2. Chronic alcoholism (abstinence since 2016). 3. Acute on chronic diastolic congestive heart failure, likely. 4. Type 2 diabetes mellitus with neuropathy. 5. Extreme obesity, BMI 40. 6. Abdominal wall abrasions with surrounding cellulitis noticed clinically. DISCHARGE DIAGNOSES: 1. Decompensated liver cirrhosis with ascites. 2. Alcoholism (abstinence since 2016). 3. Chronic diastolic congestive heart failure. 4. Type 2 diabetes with neuropathy. 5. Obesity, BMI of 38. 6. Abdominal wall abrasions with surrounding cellulitis. 7. Status post high-volume therapeutic/diagnostic paracentesis. HOSPITAL COURSE: This is a 53-year-old white man, who was initially admitted to [facility] with diagnosis of cirrhosis with ascites as well as acute on chronic diastolic heart failure. During this hospitalization, he underwent abdominal ultrasound, which confirmed a liver with coarse echogenicity as well as a nodular surface contour. The ultrasound also revealed cholelithiasis, but no evidence of cholecystitis. This ultrasound also confirmed the large amount of ascites. During this hospitalization, the patient underwent high-volume therapeutic/diagnostic paracentesis. 8.4 L of serous ascites fluid was removed by Interventional Radiology. The patient tolerated the procedure well. The initial cell count was unremarkable and not consistent with peritonitis. During this hospitalization, the patient was found to have an albumin level of 1.7 g. His renal function was 11 and 0.77 respectively. Urine test performed at his primary care physician's office revealed the presence of proteinuria though. The patient was also started on intravenous ceftriaxone because he was found to have abdominal abrasions with surrounding cellulitis. His brief hospitalization was unremarkable. The patient was seen by Gastroenterology during this hospitalization, namely Dr. Joel Barry. CONDITION ON DISCHARGE: Stable. DISCHARGE MEDICATIONS: 1. Furosemide 40 mg daily. 2. Spironolactone 50 mg daily. 3. Mupirocin 2% ointment the patient apply to his abrasions twice a day for seven days. 4. Keflex 500 mg b.i.d. for 7 days. 5. Trulicity 1.5 mg subcutaneous weekly. 6. Glargine insulin (Toujeo) 120 units subcutaneous daily. 7. Omeprazole 40 mg daily. 8. Spiriva inhaler one puff daily. 9. Albuterol inhaler 2 puffs q.i.d. as needed for mild short of breath and wheezing. 10. The patient was instructed to stop metformin since he has been experiencing diarrhea. FOLLOWUP INSTRUCTIONS: The patient instructed to follow up with his primary care physician, namely myself, Dr. Alfonso Portillo, within 1-2 weeks. The patient was instructed to follow a low-sodium diet. Absolute alcohol abstinence was recommended to the patient. Tobacco cessation was also recommended to the patient. MD DESIRE Dodge/LEE /[id number] MTDD
[2019-06-25] MEDS: CEFTRIAXONE SOD 1 GM/NS 50 ML 50 ML IV SCH (08:28)
[2019-06-25 08:30] VITALS: BP 161/80
[2019-06-25] MEDS ORDERED: SPIRONOLACTONE 25 MG TAB PO SCH (09:00)
[2019-06-25] MEDS ORDERED: FUROSEMIDE 40 MG TAB PO SCH (09:00)
[2019-06-25 09:25] VITALS: BP 161/80
--- NOTE | 2019-06-25 12:19 | NUR ---
Nutrition Education Notes Consulted for diet education - Low sodium/ ADA diet Learner(s): pt Time spent: 20minutes Barriers: [id number] is the one who cook at home. Cultural/Language Modifications: No cultural/language modifications noted. Pt speaks Tam[place]. Readiness: Acceptance Method: Handouts, explanation Topics: Heart healthy consistent carbohydrate diet (low sodium, low fat, diabetic diet) Understanding/Compliance: Expect fair understanding/compliance from pt. Will benefit from reinforcement. All questions have been answered. Signed by Kate Mederos, MS, RD, LD
[2019-06-25 12:20] VITALS: BP 161/84
[2019-06-25] MEDS ORDERED: SPIRONOLACTONE25 MG PO (12:30)
[2019-06-25] MEDS ORDERED: LASIX40 MG PO (12:30)
[2019-06-25] MEDS ORDERED: KEFLEX500 MG PO (12:33)
--- NOTE | 2019-06-25 13:00 | NUR ---
PATIENT STATED CAR WAS ACROSS THE STREET AT THE CLINIC AND WANTED TO WALK THERE TO GET HIS CAR TO GO HOME. I TOLD PATIENT THAT IT WAS NOT SAFE AND ASKED IF HE HAD A FAMILY MEMBER OR FRIEND TO PICK HIM UP. PATIENT STATED THAT HE DID NOT AND INSISTED HE WALKED. PATIENT STATED "IM NOT A BABY YOU DON'T HAVE TO CALL MY MOMMY I CAN GET TO MY CAR BY MYSELF." PATIENT INSISTED TO LEAVE TO CAR.
--- NOTE | 2019-06-25 13:00 | NUR ---
REMOVED PATIENTS IV. CATHETER TIP INTACT AND PRESSURE DRESSING APPLIED.
--- NOTE | 2019-06-25 13:08 | NUR ---
PATIENT DISCHARGED FROM FACILITY. PATIENT GATHERED ALL PERSONAL BELONGINGS, DISCHARGE INSTRUCTIONS, AND FOLLOW UP INFORMATION. NO SIGNS OF DISTRESS WHEN LEAVING FACILITY.
== END 2019-06-25 13:00 | disposition home or self-care (01) ==
LOC: FSED 16:21 → ERHOLD 17:45 → MED/SURG 19:35
PROVIDERS: ADMIT Internal Medicine; ATTEND Internal Medicine
DX: K70.31 Alcoholic cirrhosis of liver with ascites (principal); I11.0 Hypertensive heart disease with heart failure; I50.33 Acute on chronic diastolic (congestive) heart failure; L03.311 Cellulitis of abdominal wall; E66.01 Morbid (severe) obesity due to excess calories; Z68.38 Body mass index [BMI] 38.0-38.9, adult; F10.21 Alcohol dependence, in remission; E78.5 Hyperlipidemia, unspecified
CPT/HCPCS: 36415 ×2; 49083 ×2; 74176; 76700; 80053 ×3; 81003; 82553; 82945; 82948 ×2; 83880; 84157; 84484; 85025 ×3; 85610 ×2; 87070; 87205; 88112; 88305; 89051; 93005; 93306; 99284; C1729; G0378 ×3; J0696 ×2; J1200; J1817; J1940; J2270 ×3; J3490; J7050

== ENCOUNTER 2019-08-23 11:47 | Inpatient (IN) | payer OTHER ==
[~2019-08-23] VITALS: Ht 172.7 cm; Wt 99.8 kg
[~2019-08-23 11:47] MED LIST changes: +KEFLEX500 MG PO; +LASIX40 MG PO; +SPIRONOLACTONE25 MG PO
[2019-08-23 13:09] LABS: BASOPHILS # (AUTO) 0.1 (0.0-0.1); BASOPHILS % 1.3 % (0.0-1.0); EOSINOPHILS # (AUTO) 0.3 (0.0-0.4); EOSINOPHILS % 3.2 % (0.0-6.0); HEMATOCRIT 35.1 % (38.2-49.6); HEMOGLOBIN 11.2 g/dL (14.0-18.0); LYMPHOCYTES % 21.2 % (18.0-39.1); MEAN CORPUSCULAR HEMOGLOBIN 25.2 pg (28-32); MEAN CORPUSCULAR HGB CONC 31.9 g/dL (31-35); MEAN CORPUSCULAR VOLUME 79.1 fL (81-99); MONOCYTES # (AUTO) 0.9 (0.2-0.8); MONOCYTES % 9.2 % (4.4-11.3); NEUTROPHILS # (AUTO) 6.2 (2.1-6.9); NEUTROPHILS % 64.7 % (38.7-80.0); PLATELET COUNT 224 x10e3/uL (140-360); RED BLOOD COUNT 4.44 x10e6/uL (4.3-5.7); RED CELL DISTRIBUTION WIDTH 19.9 % (11.7-14.4)
[2019-08-23 13:23] LABS: INR 1.03
[2019-08-23 13:24] LABS: PARTIAL THROMBOPLASTIN TIME 27.3 seconds (23.8-35.5)
[2019-08-23 13:31] LABS: ALBUMIN/GLOBULIN RATIO 0.6 (0.8-2.0); ANION GAP 16.2 mmol/L (8-16); CALCIUM 9.6 mg/dL (8.4-10.2); CREATININE, SERUM 2.64 mg/dL (0.72-1.25)
[2019-08-23 13:33] LABS: POTASSIUM 5.2 mmol/L (3.5-5.1)
[2019-08-23 13:40] LABS: CREATINE KINASE MB 3.4 ng/mL (0-5.0)
--- NOTE | 2019-08-23 13:51 | Diagnostic Imaging Report ---
CT BRAIN WO HISTORY: Altered mental status, left-sided weakness COMPARISON: None. Technique: Noncontrast axial scans were obtained from skull base to the vertex. Coronal and sagittal reconstructions obtained from the axial data. One or more of the following dose reduction techniques were used: Automated exposure control, adjustment of the mA and/or kV according to patient size, and/or utilization of iterative reconstruction technique. Beam hardening artifacts obscure some details. DISCUSSION: Scalp/Skull: Unremarkable. Brain sulci: Mildly prominent. Ventricles: Compensatory dilatation. Extra-axial spaces: No masses or fluid collections. Carotid siphon calcifications are present. Parenchyma: Focal encephalomalacia in the left temporal pole may be from remote trauma. There is an old left striatocapsular lacunar infarct. Small lacunar infarcts in the right putamen and bilateral thalami may be old. Focal hypodensity in the central whitney may be due to age indeterminate lacunar infarct. Old small cortical infarcts are also seen in the right superior and left inferior cerebellum. Otherwise, no masses, hemorrhage, or large vascular territory acute infarct. Dural sinuses: No abnormal densities. Sellar/Suprasellar region: Intact. Skull base: Intact. Incidental findings: There is mild mucosal thickening in the bilateral ethmoid air cells. IMPRESSION: 1. Small lacunar infarcts in the right putamen and bilateral thalami may be old. 2. Focal central pontine hypodensity may be due to age indeterminate lacunar infarct. 3. Otherwise, no acute intracranial abnormalities. 4. Mild supratentorial chronic microvascular ischemic change with old left striatocapsular lacunar infarct. 5. Focal left temporal pole encephalomalacia may be from remote trauma. 6. Old small right superior and left inferior cerebellar cortical infarcts. 7. Mild generalized cerebral volume loss. Signed by: Dr. Quang Kim M.D. on 08/23/2019 1:48 PM
[2019-08-23 14:01] LABS: BILIRUBIN,URINE NEGATIVE (NEGATIVE); CLARITY,URINE CLEAR (CLEAR); COLOR,URINE YELLOW (YELLOW); KETONES,URINE NEGATIVE (NEGATIVE); LEUKOCYTE ESTERASE ,URINE NEGATIVE (NEGATIVE); NITRITE,URINE NEGATIVE (NEGATIVE); PROTEIN,URINE DIPSTICK TRACE (NEGATIVE); URINE UROBILINOGEN 0.2 mg/dL (0.2 - 1)
[2019-08-23 14:03] LABS: AMPHETAMINES SCREEN,URINE NEGATIVE (NEGATIVE); BENZODIAZEPINES SCREEN,URINE NEGATIVE (NEGATIVE); PHENCYCLIDINE SCREEN,URINE NEGATIVE (NEGATIVE)
--- NOTE | 2019-08-23 14:07 | Diagnostic Imaging Report ---
EXAMINATION: CHEST SINGLE (PORTABLE) INDICATION: Weakness, altered mental status COMPARISON: Chest radiograph of 04/29/2019 FINDINGS: LINES/TUBES:None LUNGS:The lungs are well-inflated. No focal consolidation or pulmonary edema. PLEURA:No pleural effusion or pneumothorax. MEDIASTINUM:The cardiomediastinal silhouette appears normal in size and shape. BONES/SOFT TISSUES:No acute osseous injury. ABDOMEN:No free air under the diaphragm. IMPRESSION: No focal pneumonia or pulmonary edema. Signed by: Kathryn Kaminski MD on 08/23/2019 2:03 PM
[2019-08-23 14:13] LABS: BACTERIA,URINE RARE /HPF; EPITHELIAL CELLS,URINE FEW /LPF; HYALINE CASTS 0-1 (0-1); WBC,URINE (MAN) 0-5 /HPF (0-5)
[2019-08-23] MEDS ORDERED: INSULIN REGULAR, HUMAN 100 UNIT/1 ML 3ML VIAL IV ONE (14:45)
[2019-08-23] MEDS ORDERED: SOD POLYSTYRENE SULFONATE SUSP 15 GM/60 ML BTL PO ONE (14:45)
--- NOTE | 2019-08-23 15:20 | NUR ---
katrina database modeler talking to patient at bedside due to patient wanting to leave ama. patient is raising voice and cursing. reorientation provided
--- NOTE | 2019-08-23 15:57 | NUR ---
patient continues to take off retort feeder ground bone, explained to patient the risk of not having retort feeder ground bone. patient is irate
--- NOTE | 2019-08-23 17:50 | NUR ---
Pt received at this time from ER. Pt arrived from ER in wheelchair. Pt is aox2-3, he can be confused at times. Pt denies any pain at this time. He has abrasions to right great great toe and bottom of right foot. Abrasion to left great toe. Breaths are even and unlabored. Dr. Portillo was here to see pt and received new order to consult Dr. Lynch for renal insufficiency.
[2019-08-23 18:01] VITALS: BP 142/72
[2019-08-23 18:06] VITALS: BP 142/72
[2019-08-23 18:09] VITALS: BP 142/72
--- NOTE | 2019-08-23 18:52 | History and Physical ---
CHIEF COMPLAINT: Confusion spells. HISTORY OF PRESENT ILLNESS: This is a 53-year-old white man, who was brought to [facility] because of confusion. According to family members, confusion started today. This gentleman has a history of decompensated liver cirrhosis with recurrent bouts of hepatic encephalopathy. In fact, the patient was hospitalized here at [facility] 2 months ago because of decompensated liver cirrhosis with ascites. During hospitalization, he underwent high-volume paracentesis. When he was discharged from the hospital 2 months ago, his BUN and creatinine were 11 and 0.77 respectively. On this admission, the patient's BUN and creatinine are 63 and 2.64 respectively. His glucose is 343 mg/dL. B-type natriuretic peptide level is elevated at 145. The patient's potassium is 5.2. The patient's sodium is 129. The patient's albumin is low level at 3.0. Chest x- ray aforementioned was unremarkable. The patient underwent a brain CT in the emergency room that revealed small lacunar infarcts in the right putamen and bilateral thalami, which appear to be chronic. There was also mild microvascular ischemic changes with old left striatocapsular lacunar infarct. He also had evidence of focal left temporal lobe encephalomalacia, which radiologist thought could be secondary to remote trauma. He also had evidence of old small right superior and left inferior cerebellar cortical infarcts. Urinalysis performed in the emergency room was unremarkable. Urine toxicology was negative. The patient was found to have white blood cell count 9500 with 64% segmented neutrophils. Hemoglobin is 11.2 g/dL. The patient's prothrombin time and INR level were 14.0 and 1.03 respectively. The patient was admitted for further evaluation and treatment. REVIEW OF SYSTEMS: GENERAL: Weight is stable. No fever or chills, but he has been more confused lately according to family members. HEENT: No headaches. No visual changes. CARDIOVASCULAR/RESPIRATORY: No chest pain. No shortness of breath. No cough. GI: The patient denies any increase in his abdominal girth. He denies any nausea, vomiting, or diarrhea. He also denies any constipation. The patient denies any melena or hematochezia. : No dysuria or hematuria. He states he is making urine. NEUROMUSCULAR: No limb weakness or numbness. Just confusion according to family members. PAST MEDICAL HISTORY: 1. Decompensated liver cirrhosis. 2. Alcoholism (abstinence since 2016). 3. Chronic diastolic congestive heart failure. 4. Type 2 diabetes mellitus with neuropathy. 5. Obesity. BMI 40. 6. Hypothyroidism. 7. Chronic pain syndrome. 8. Hyperlipidemia. 9. Hypertensive heart disease. 10. Chronic pain in the left lower extremity secondary to traumatic injury. 11. Chronic bronchitis. 12. Tobacco abuse. MEDICATIONS: 1. Furosemide 40 mg daily. 2. Spironolactone 50 mg daily. 3. Trulicity 1.5 mg subcutaneous weekly. 4. Glargine insulin 120 units subcutaneous daily. 5. Omeprazole 40 mg daily. 6. Spiriva inhaler 1 puff daily. 7. Albuterol inhaler 2 puffs q.i.d. as needed for shortness of breath and wheezing. ALLERGIES: PENICILLIN. PAST SURGICAL HISTORY: 1. Multiple left lower extremity surgeries including skin and muscle grafting because of traumatic injury many years ago. 2. Right forearm muscle grafting. 3. Left ankle surgery. FAMILY HISTORY: Noncontributory. SOCIAL HISTORY: He is , lives with his . He is unemployed. He smokes tobacco on a regular basis. The patient states he was a heavy alcohol drinker, but quit in 2016. PHYSICAL EXAMINATION: GENERAL: He is awake and alert. He seems to become slightly confused easily, but his mental state seems to be near its baseline. VITAL SIGNS: Height 5 feet 8 inches, weight 260 pounds, BMI is 40. INTEGUMENT: Skin is warm and dry. No pallor, jaundice, or diaphoresis. HEENT: Anicteric sclerae. Moist mucous membranes. NECK: Supple. CARDIOVASCULAR: Distant heart sounds. Regular rate and rhythm. LUNGS: No rales. No rhonchi or wheezes. ABDOMEN: Obese. No obvious fluid wave. EXTREMITIES: He has trace edema in the bilateral lower legs. He has deformity of the left lower leg secondary to old traumatic injury. NEUROLOGIC: Intact, but he has no pinprick sensation to plantar aspect of bilateral feet. DIAGNOSES: 1. Decompensated alcoholic liver cirrhosis. 2. Hepatic encephalopathy, mild. 3. Acute renal insufficiency (possible hepatorenal). 4. [id number] diastolic congestive heart failure. 5. Type 2 diabetes with severe diabetic peripheral neuropathy. PLAN: 1. We will hold spironolactone and furosemide because of the patient's acute renal insufficiency. 2. We will check ammonia level and start oral lactulose. 3. Consult Nephrology. 4. Rule out myocardial infarction. 5. Glucose control. 6. Recommended tobacco cessation. 7. Order abdominal ultrasound. I spent 45 minutes in the care of the patient. MD DESIRE Dodge/LEE /[id number] MTDD
[2019-08-23] MEDS ORDERED: DEXTROSE 50% SYRINGE 50 ML IV PRN (19:00)
[2019-08-23 20:00] VITALS: BP 135/70
--- NOTE | 2019-08-23 20:25 | NUR ---
DR. BARAJAS PAGED AT THIS TIME TO REPORT PT BLOOD SUGAR IS [phone] AT THIS TIME.
--- NOTE | 2019-08-23 20:51 | NUR ---
Pt refusing bed alarm. Pt states that he does not want it on, as he is having to use the urinal frequently. Pt educated on why the bed alarm is being used. Pt continues to refuse. Pt appears agitated. Will closely monitor pt.
[2019-08-23] MEDS: INSULIN LISPRO 100 UNIT/1 ML 3ML VIAL SQ SCH (21:00)
[2019-08-23] MEDS ORDERED: LACTULOSE SYRUP 20 GM/30 ML UDC PO PRN (21:15)
[2019-08-23] MEDS ORDERED: INSULIN GLARGINE 100 UNITS/ML VIAL SQ ONE (21:15)
[2019-08-23] MEDS ORDERED: INSULIN LISPRO 100 UNIT/1 ML 3ML VIAL SQ ONE (21:15)
[2019-08-24] VITALS (9 sets, daily range): BP systolic 118–158; BP diastolic 63–84
--- NOTE | 2019-08-24 00:06 | NUR ---
DR. BARAJAS PAGED AT THIS TIME TO INFORM OF BLOOD SUGAR AT [phone].
--- NOTE | 2019-08-24 00:43 | NUR ---
NEW ORDER RECEIVED FOR AN ADDITIONAL 30 UNITS OF HUMALOG NOW.
[2019-08-24] MEDS ORDERED: INSULIN LISPRO 100 UNIT/1 ML 3ML VIAL SQ ONE (00:45)
[2019-08-24] MEDS: SODIUM CHLORIDE 0.9% 1000ML 1,000 ML IV SCH ×3 (00:45→20:40)
[2019-08-24 05:47] LABS: BASOPHILS # (AUTO) 0.1 (0.0-0.1); BASOPHILS % 0.9 % (0.0-1.0); EOSINOPHILS # (AUTO) 0.3 (0.0-0.4); EOSINOPHILS % 3.1 % (0.0-6.0); HEMATOCRIT 32.7 % (38.2-49.6); HEMOGLOBIN 10.4 g/dL (14.0-18.0); LYMPHOCYTES # (AUTO) 1.9 (1.0-3.2); LYMPHOCYTES % 18.7 % (18.0-39.1); MEAN CORPUSCULAR HEMOGLOBIN 25.1 pg (28-32); MEAN CORPUSCULAR HGB CONC 31.8 g/dL (31-35); MONOCYTES # (AUTO) 1.2 (0.2-0.8); MONOCYTES % 11.5 % (4.4-11.3); NEUTROPHILS # (AUTO) 6.6 (2.1-6.9); NEUTROPHILS % 65.1 % (38.7-80.0); PLATELET COUNT 206 x10e3/uL (140-360); RED BLOOD COUNT 4.14 x10e6/uL (4.3-5.7); RED CELL DISTRIBUTION WIDTH 19.6 % (11.7-14.4)
[2019-08-24] MEDS ORDERED: TIOTROPIUM 18 MCG INH POWDER INH SCH (06:00)
[2019-08-24 06:05] LABS: ALBUMIN 2.9 g/dL (3.5-5.0); ALBUMIN/GLOBULIN RATIO 0.6 (0.8-2.0); ANION GAP 15.3 mmol/L (8-16); CALCIUM 9.5 mg/dL (8.4-10.2); CREATININE, SERUM 1.56 mg/dL (0.72-1.25); POTASSIUM 3.3 mmol/L (3.5-5.1)
[2019-08-24 06:27] LABS: EOSINOPHILS % (MANUAL) 2 % (0-7); LYMPHOCYTES % (MANUAL) 6 % (19-48); MONOCYTES % (MANUAL) 9 % (3.4-9.0); NEUTROPHILS % (MANUAL) 83 % (40-74); PLATELET ESTIMATE ADEQUATE; PLATELET MORPHOLOGY COMMENT NORMAL; RBC MORPHOLOGY COMMENT NORMAL
--- NOTE | 2019-08-24 07:35 | NUR ---
PT UP ON SIDE OF BED,DENIES PAIN NO DISTRESS NOTED.
[2019-08-24] MEDS ORDERED: POTASSIUM CHLORIDE 10MEQ EA PO ONE (08:00)
[2019-08-24] MEDS ORDERED: INSULIN GLARGINE 100 UNITS/ML VIAL SQ SCH (09:00)
[2019-08-24] MEDS: METRONIDAZOLE 500MG/NS 100ML 100 ML IV SCH ×2 (09:00→16:00)
[2019-08-24] MEDS ORDERED: INSULIN GLARGINE IJ SCH (09:00)
[2019-08-24] MEDS: LACTULOSE SYRUP 20 GM/30 ML UDC PO SCH ×3 (09:02→20:40)
[2019-08-24] MEDS: INSULIN LISPRO 100 UNIT/1 ML 3ML VIAL SQ SCH ×4 (09:03→21:00)
[2019-08-24] MEDS: CEFTRIAXONE SOD 1 GM/NS 50 ML 50 ML IV SCH ×2 (10:00→20:40)
--- NOTE | 2019-08-24 10:15 | NUR ---
IV INFILTRATED DCD
--- NOTE | 2019-08-24 14:24 | Diagnostic Imaging Report ---
EXAM: US ABDOMEN COMPLETE DATE: 08/24/2019 12:00 AM INDICATION: Hepatic cirrhosis COMPARISON: Abdominal ultrasound of 06/24/2019 TECHNIQUE: Transverse and longitudinal wilson scale and color doppler sonographic images of the upper abdomen were obtained. FINDINGS: There is no evidence of fluid or masses seen in the area of clinical concern in the right lower quadrant. LIVER 20.3 cm in the right midclavicular line. Normal echogenicity of the liver with nodular surface contour, no masses. SPLEEN 15.4 cm in maximum diameter. Normal echogenicity, no masses. GALLBLADDER Small shadowing calculus in the gallbladder. No gallbladder wall thickening, gallbladder distention, or pericholecystic fluid. Negative reported sonographic Mckee's sign. Gallbladder wall measures 3 mm BILE DUCTS No intra nor extra-hepatic biliary dilation. Common bile duct measures 4 mm PANCREAS: Visualized portions are normal. RIGHT KIDNEY: 12.8 cm Echogenicity: Normal Collecting System: No hydronephrosis Stones: None Cyst/Mass: None LEFT KIDNEY: 13.3 cm Echogenicity: Normal Collecting System: No hydronephrosis Stones: None Cyst/Mass: None VESSELS: Aorta: Visualized portions are within normal size limits Inferior Vena Cava: Visualized portions are normal Main Portal Vein: 1.0 cm, normal size with hepatopetal flow. FREE FLUID: None IMPRESSION: Hepatomegaly and cirrhotic liver morphology. No ascites. Splenomegaly. Cholelithiasis without sonographic evidence of cholecystitis. No renal calculi or hydronephrosis. Signed by: Kathryn Kaminski MD on 08/24/2019 2:21 PM
--- NOTE | 2019-08-24 14:55 | NUR ---
Visit made by the Spiritual Care Department Pastoral Visitor, Ely Todd. PV provided pastoral presence, prayer, hospitality, and supportive listening. Pastoral Visitor informed pt/family of the scope of [employer]gr[employer] Services and availability. MANDY PATRICK Seasonal Driver Spiritual Care Department O: [phone] Pager: [phone] ([phone] number calling from)
--- NOTE | 2019-08-24 17:57 | NUR ---
PT UP IN BED NO DISTRESS NTOED DENIES PAIN.
--- NOTE | 2019-08-24 19:38 | NUR ---
Received bedside report from day nurse. Patient resting in bed, complaining of pain. Paged Dr. Portillo for orders, currently awaiting return call. All patient safety measures in place. Will continue to monitor.
--- NOTE | 2019-08-24 19:44 | NUR ---
Received return call from Dr. Portillo. Received orders for PRN pain meds and additional coverage for elevated fingerstick blood glucose of 411. Will continue to monitor.
[2019-08-24] MEDS ORDERED: INSULIN LISPRO 100 UNIT/1 ML 3ML VIAL SQ NR (20:00)
[2019-08-24] MEDS ORDERED: INSULIN GLARGINE 100 UNITS/ML VIAL SQ NR (20:00)
[2019-08-24] MEDS: TRAMADOL HCL 50 MG TAB PO PRN (20:21)
--- NOTE | 2019-08-24 22:45 | Consultation ---
DATE OF CONSULTATION: REASON FOR CONSULT: Increased BUN and creatinine. HISTORY OF PRESENT ILLNESS: This is a 53-year-old male, who was a poor historian, who was brought in by his family secondary to mental status changes. The patient is not very aware of all his history. Currently, he said he is feeling fine. No problems and he wants to go home. PAST MEDICAL HISTORY: Include: 1. Decompensated cirrhosis. 2. History of ascites. 3. High volume paracentesis. 4. Small lacunar infarct in the right putamen and bilateral thalami that appear chronic. 5. Chronic diastolic congestive heart failure. 6. Type 2 diabetes mellitus. 7. Alcoholism, abstinent since 2016. 8. Hypothyroidism. 9. Chronic pain syndrome. 10. Chronic bronchitis. 11. Chronic pain, left lower extremity. He has had a traumatic injury. 12. Hypertensive heart disease. 13. Tobacco abuse. 14. Obesity. SOCIAL HISTORY: Denies any drugs. Positive smoking, half pack a day. HOME MEDICATIONS: Include Lasix, spironolactone, Trulicity, glargine, omeprazole, Spiriva, and albuterol. ALLERGIES: PENICILLIN. FAMILY HISTORY: Noncontributory. PAST SURGICAL HISTORY: Include multiple left lower extremity surgery including skin and muscle grafting because of traumatic injury many years ago. Also, he had right forearm muscle grafting and left ankle surgery. SOCIAL HISTORY: , lives with his . Positive smoking. Used to be a heavy alcohol user. REVIEW OF SYSTEMS: Currently, denies any nausea, vomiting, constipation, or diarrhea. Denies any shortness of breath. Denies any chest pain. No blood in the stool. No blood in the urine. No sensory loss or motor loss. No skin changes. Basically otherwise negative. PHYSICAL EXAMINATION: GENERAL: Alert and oriented to place. NECK: No JVD. No bruit. LUNGS: Rhonchi. No rales. HEART: Regular with no S3, no S4. ABDOMEN: Nontender and nondistended. No hepatomegaly or splenomegaly. EXTREMITIES: No clubbing, cyanosis, or edema. NEUROLOGIC: Cranial nerves II through XII grossly intact. Sensation intact, motor intact, but slightly confused, not aware of his diseases. VITAL SIGNS: Blood pressure is 140/65, afebrile. LABORATORY DATA: White count 9.5, hemoglobin 11.2, hematocrit 35.1, platelets 224. Urinalysis, trace protein, otherwise is negative. Drug screen negative. Lactic acid 3, glucose 109, troponin I 0.002. Sodium 132, potassium 3.3, chloride 91, BUN 44, creatinine 1.56, albumin 2.9. AST 77, ALT 57, HDL 100. Creatinine yesterday upon admission 2.64, previously 0.77. Abdominal ultrasound demonstrated cholelithiasis, hepatomegaly, cirrhotic liver, splenomegaly. No renal calculi or hydronephrosis. ASSESSMENT AND PLAN: 1. Acute kidney failure, most likely secondary to volume depletion, currently improving with IV fluids. We will check fractional excretion of sodium and also check urine eosinophil. We will also hold his diuretics including spironolactone and furosemide. The patient does not have any signs of fluid overload. 2. Ammonia level was checked. Lactulose was started. 3. Type 2 diabetes mellitus, currently improved glucose control during his stay. 4. We will check labs in a.m. I do believe that the patient should be improving quickly. The patient most likely have prerenal status secondary to diuretic causing acute tubular necrosis. The patient will need to be on diuretics again as outpatient, but will need to talk to family when to hold that, especially if the patient is not eating or not drinking enough liquids. The patient is at risk for hepatorenal syndrome, but at this time, this does not look like hepatorenal syndrome. This is most likely severe volume depletion in a cirrhotic patient. 5. Malnutrition, secondary to cirrhosis. Ashok Krishna MD MA/LEE /[id number]
[2019-08-25] VITALS: BP 134/68
[2019-08-25] MEDS: METRONIDAZOLE 500MG/NS 100ML 100 ML IV SCH ×2 (00:21→09:40)
[2019-08-25] MEDS: TRAMADOL HCL 50 MG TAB PO PRN ×3 (00:21→09:05)
[2019-08-25 04:00] VITALS: BP 135/66
[2019-08-25 05:59] LABS: BASOPHILS % 0.5 % (0.0-1.0); EOSINOPHILS # (AUTO) 0.2 (0.0-0.4); EOSINOPHILS % 2.6 % (0.0-6.0); HEMATOCRIT 34.6 % (38.2-49.6); HEMOGLOBIN 11.1 g/dL (14.0-18.0); LYMPHOCYTES # (AUTO) 1.8 (1.0-3.2); LYMPHOCYTES % 22.1 % (18.0-39.1); MEAN CORPUSCULAR HEMOGLOBIN 25.5 pg (28-32); MEAN CORPUSCULAR HGB CONC 32.1 g/dL (31-35); MEAN CORPUSCULAR VOLUME 79.5 fL (81-99); MONOCYTES # (AUTO) 0.8 (0.2-0.8); MONOCYTES % 9.8 % (4.4-11.3); NEUTROPHILS # (AUTO) 5.2 (2.1-6.9); NEUTROPHILS % 64.6 % (38.7-80.0); PLATELET COUNT 187 x10e3/uL (140-360); RED BLOOD COUNT 4.35 x10e6/uL (4.3-5.7); RED CELL DISTRIBUTION WIDTH 19.7 % (11.7-14.4)
[2019-08-25 06:25] LABS: ALANINE AMINOTRANSFERASE 63 IU/L (0-55); ALBUMIN 2.9 g/dL (3.5-5.0); ALBUMIN/GLOBULIN RATIO 0.6 (0.8-2.0); ALKALINE PHOSPHATASE 221 IU/L (40-150); ANION GAP 12.9 mmol/L (8-16); BLOOD UREA NITROGEN 30 mg/dL (7-26); BUN/CREATININE RATIO 26 (6-25); CALCIUM 9.8 mg/dL (8.4-10.2); CARBON DIOXIDE 26 mmol/L (22-29); CHLORIDE 100 mmol/L (98-107); CREATININE, SERUM 1.17 mg/dL (0.72-1.25); EST GLOMERULAR FILTRATION RATE > 60 ML/MIN (60-); GLUCOSE 102 mg/dL (74-118); POTASSIUM 3.9 mmol/L (3.5-5.1); SODIUM 135 mmol/L (136-145)
--- NOTE | 2019-08-25 06:54 | NUR ---
RECEIVED REPORT FROM OFF GOING NURSE. WALKING ROUNDS DONE. PATIENT IS RESTING IN BED. NO S/S OF DISTRESS NOTED. CALL LIGHT WITHIN REACH. BED IN THE LOWEST POSITION.
--- NOTE | 2019-08-25 07:15 | NUR ---
Bedside report given to day nurse. Patient resting in bed, no s/s of distress or c/o pain at this time. All safety measures in place.
[2019-08-25 07:19] LABS: EOSINOPHILS % (MANUAL) 3 % (0-7); LYMPHOCYTES % (MANUAL) 18 % (19-48); MONOCYTES % (MANUAL) 7 % (3.4-9.0); NEUTROPHILS % (MANUAL) 70 % (40-74)
[2019-08-25 07:22] LABS: POIKILOCYTOSIS SLIGHT
[2019-08-25 07:23] LABS: HYPOCHROMASIA SLIGHT; PLATELET ESTIMATE ADEQUATE; PLATELET MORPHOLOGY COMMENT FEW LARGE; RBC MORPHOLOGY COMMENT ABNORMAL; TARGET CELLS FEW
[2019-08-25 07:27] VITALS: BP 142/67
[2019-08-25] MEDS: INSULIN LISPRO 100 UNIT/1 ML 3ML VIAL SQ SCH (07:30)
--- NOTE | 2019-08-25 07:55 | Discharge Summary ---
ADMITTING DIAGNOSES: 1. Decompensated alcoholic liver cirrhosis. 2. Hepatic encephalopathy. 3. Acute renal insufficiency, possible hepatorenal. 4. Acute on chronic diastolic congestive heart failure. 5. Type 2 diabetes mellitus with severe diabetic peripheral neuropathy. DISCHARGE DIAGNOSES: 1. Decompensated alcoholic liver cirrhosis. 2. Hepatic encephalopathy, resolved. 3. Acute renal insufficiency secondary to acute tubular necrosis from diuretics, resolved. 4. Acute on chronic diastolic congestive heart failure, resolved. 5. Type 2 diabetes mellitus with severe diabetic peripheral neuropathy. 6. Lactic acidosis secondary to metformin use. HOSPITAL COURSE: A 53-year-old white man, who was initially admitted to [facility] with diagnosis of hepatic encephalopathy as well as acute renal insufficiency. Initially, he was thought that the acute renal insufficiency was secondary to possible hepatorenal syndrome. However, during his hospitalization, it was discovered that his acute renal insufficiency was secondary to acute tubular necrosis from his diuretic use namely spironolactone and furosemide. The patient's furosemide and spironolactone were held and he was started on intravenous fluids. The patient's renal function improved dramatically. On admission, his BUN and creatinine were 63 and 2.64 respectively. On day of discharge, BUN and creatinine were 30 and 1.17 respectively. The patient's glucose levels were elevated during this hospitalization, but they did improve somewhat when his glargine insulin was increased to 100 units subcutaneous twice daily. The patient's metformin was discontinued during his hospitalization because of his acute renal failure. Moreover, he was found to have an elevated lactic acid level of 3.0, which was felt to be secondary to metformin use and not sepsis. On the day of his discharge, his lactic acid was 1.2. The patient underwent abdominal ultrasound during this hospitalization, which revealed hepatomegaly and cirrhotic liver, but no ascites is appreciated. He was also found to have splenomegaly. Also, the ultrasound revealed cholelithiasis without any sonographic evidence of acute cholecystitis. Also during this hospitalization, the patient underwent a brain CT, which revealed small lacunar infarcts in the right putamen and bilateral thalami, which appeared old. He was also found to have focal left temporal lobe encephalomalacia that the radiologist thought was secondary to remote trauma. He was also found to have old right superior and left inferior cerebellar cortical infarcts. CT also revealed mild generalized cerebral volume loss. The patient's hospitalization was unremarkable. On the day of discharge, the patient is adamant about being discharged. It was explained to the patient that he was still proven clinically, but he was insistent on being discharged home. When the patient was admitted, his AST and ALT were 70 and 58 respectively with alkaline phosphatase of 220. On the day of discharge, his AST and ALT were 86 and 63 respectively. His alkaline phosphatase was still elevated at 221. The patient's ammonia level did get as high as 173 during his hospitalization, but on discharge it was 90. Also, amylase and lipase were normal during this hospitalization. His mental state had improved significantly on discharge compared to when he was admitted. CONDITION ON DISCHARGE: Stable with an overall fair prognosis. DISCHARGE MEDICATIONS: 1. Lactulose syrup 20 g b.i.d. 2. Cipro 500 mg b.i.d. for 7 days. 3. Glargine insulin in the form of Toujeo 120 units subcutaneous daily. 4. Oxycodone/acetaminophen 10/325 mg one pill twice daily as needed for pain. 5. Omeprazole 40 mg daily. 6. Spiriva inhaler one puff daily. 7. Albuterol inhaler two puffs q.i.d. as needed for shortness of breath and wheezing. 8. Trulicity 1.5 mg subcutaneous weekly. 9. The patient was instructed do not take furosemide, spironolactone or metformin until further notice. FOLLOWUP INSTRUCTIONS: The patient was instructed to follow up with his attending namely myself next week or within a week. Tobacco cessation was highly recommended to the patient. Once again, the patient was told not to take furosemide, spironolactone or metformin. MD DESIRE Dodge/LEE /[id number] KAILA
[2019-08-25 08:04] LABS: AMYLASE 80 U/L (25-125); LIPASE 60 U/L (8-78)
[2019-08-25 08:21] VITALS: BP 142/67
[2019-08-25] MEDS ORDERED: INSULIN GLARGINE 100 UNITS/ML VIAL SQ SCH (09:00)
[2019-08-25] MEDS: LACTULOSE SYRUP 20 GM/30 ML UDC PO SCH (09:02)
[2019-08-25] MEDS: CEFTRIAXONE SOD 1 GM/NS 50 ML 50 ML IV SCH (09:02)
[2019-08-25] MEDS ORDERED: LACTULOSE20 GM/30 M PO (09:59)
[2019-08-25 11:20] VITALS: BP 148/71
--- NOTE | 2019-08-25 11:33 | NUR ---
RECEIVED DC ORDER FROM DR. BARAJAS. PATIENT IS IN STABLE CONDITION. IV LINE TO RIGHT FOREARM DCD WITH TIP INTACT, PRESSURE APPLIED TO SITE, NO BLEEDING NOTED. DISCHARGE TEACHING PROVIDED TO PATIENT, HE VERBALIZED UNDERSTANDING. DISCHARGE FOLDER WITH PRESCRIPTIONS ON HAND. PERSONAL ITEMS ON HAND. PATIENT ACCOMPANIED TO PRIVATE AUTO VIA WHEELCHAIR BY STAFF.
== END 2019-08-25 11:56 | disposition home or self-care (01) | DRG 432 ==
LOC: ER 11:47 → ERHOLD 14:28 → MED/SURG3 17:53
PROVIDERS: ADMIT Internal Medicine; ATTEND Internal Medicine
DX: K70.30 Alcoholic cirrhosis of liver without ascites (principal); N17.0 Acute kidney failure with tubular necrosis; I50.33 Acute on chronic diastolic (congestive) heart failure; E87.2 Acidosis; E46 Unspecified protein-calorie malnutrition; K72.90 Hepatic failure, unspecified without coma; N14.1 Nephropathy induced by other drugs, medicaments and biological substances; T50.0X5A Adverse effect of mineralocorticoids and their antagonists, initial encounter; T50.1X5A Adverse effect of loop [high-ceiling] diuretics, initial encounter; T38.3X5A Adverse effect of insulin and oral hypoglycemic [antidiabetic] drugs, initial encounter; I11.0 Hypertensive heart disease with heart failure; E11.42 Type 2 diabetes mellitus with diabetic polyneuropathy; Z79.4 Long term (current) use of insulin; G93.89 Other specified disorders of brain; Z86.73 Personal history of transient ischemic attack (TIA), and cerebral infarction without residual deficits; R16.1 Splenomegaly, not elsewhere classified; E03.9 Hypothyroidism, unspecified; F10.21 Alcohol dependence, in remission; Z68.33 Body mass index [BMI] 33.0-33.9, adult; F17.200 Nicotine dependence, unspecified, uncomplicated; G89.4 Chronic pain syndrome
CPT/HCPCS: 36415; 70450; 71045; 76700; 80053; 80307; 81001; 82140; 82150; 82550; 82553; 82948; 83605; 83690; 83735; 83880; 84484; 85025; 85610; 85730; 93005; 96372; 99284; J0696; J1815; J7030

== ENCOUNTER 2019-11-29 10:17 | Inpatient (IN) | payer OTHER ==
[~2019-11-29] VITALS: Ht 172.7 cm; Wt 103.4 kg
[2019-11-29] VITALS (8 sets, daily range): BP systolic 104–133; BP diastolic 48–71
[~2019-11-29 10:17] MED LIST changes: +LACTULOSE20 GM/30 M PO
[2019-11-29] MEDS ORDERED: SODIUM CHLORIDE 0.9% 1000ML 3,000 ML ONE (10:38)
[2019-11-29] MEDS ORDERED: SODIUM CHLORIDE 0.9% 1000ML 1,000 ML IV STA ×2 (11:09)
[2019-11-29] MEDS ORDERED: SODIUM CHLORIDE 0.9% 500ML 500 ML IV STA (11:09)
[2019-11-29 11:11] LABS: BASOPHILS # (AUTO) 0.1 (0.0-0.1); BASOPHILS % 1.3 % (0.0-1.0); EOSINOPHILS # (AUTO) 0.2 (0.0-0.4); EOSINOPHILS % 1.5 % (0.0-6.0); HEMATOCRIT 31.4 % (38.2-49.6); HEMOGLOBIN 10.5 g/dL (14.0-18.0); LYMPHOCYTES # (AUTO) 1.4 (1.0-3.2); LYMPHOCYTES % 13.6 % (18.0-39.1); MEAN CORPUSCULAR HEMOGLOBIN 27.4 pg (28-32); MEAN CORPUSCULAR HGB CONC 33.4 g/dL (31-35); MONOCYTES # (AUTO) 0.9 (0.2-0.8); MONOCYTES % 8.9 % (4.4-11.3); NEUTROPHILS # (AUTO) 7.7 (2.1-6.9); NEUTROPHILS % 74.1 % (38.7-80.0); PLATELET COUNT 261 x10e3/uL (140-360); RED BLOOD COUNT 3.83 x10e6/uL (4.3-5.7); RED CELL DISTRIBUTION WIDTH 14.1 % (11.7-14.4)
[2019-11-29] MEDS ORDERED: SODIUM CHLORIDE 0.9% 1000ML 1,000 ML IV SCH ×2 (11:15→17:45)
[2019-11-29] MEDS ORDERED: CEFEPIME HCL 1 GM VIAL IV SCH (11:15)
[2019-11-29] MEDS ORDERED: CEFEPIME 1GM/NS 0.9% 50 ML 50 ML IV ONE ×2 (11:28→11:30)
[2019-11-29 11:33] LABS: ALBUMIN 1.6 g/dL (3.5-5.0); ALBUMIN/GLOBULIN RATIO 0.6 (0.8-2.0); ANION GAP 11.3 mmol/L (8-16); CREATININE, SERUM 1.47 mg/dL (0.72-1.25)
[2019-11-29 11:35] LABS: BILIRUBIN,URINE NEGATIVE (NEGATIVE); CLARITY,URINE CLEAR (CLEAR); COLOR,URINE YELLOW (YELLOW); KETONES,URINE NEGATIVE (NEGATIVE); LEUKOCYTE ESTERASE ,URINE NEGATIVE (NEGATIVE); NITRITE,URINE NEGATIVE (NEGATIVE); PROTEIN,URINE DIPSTICK 1+ (NEGATIVE); URINE UROBILINOGEN 0.2 mg/dL (0.2 - 1)
[2019-11-29 11:36] LABS: CALCIUM 5.1 mg/dL (8.4-10.2); POTASSIUM 2.3 mmol/L (3.5-5.1)
[2019-11-29] MEDS ORDERED: POTASSIUM CHLORIDE 20 MEQ TAB CR PO STA (11:36)
[2019-11-29] MEDS ORDERED: POTASSIUM CHLORIDE 10MEQ/100ML 300 ML ONE (11:43)
[2019-11-29] MEDS ORDERED: POTASSIUM CHLORIDE 10MEQ/100ML 1,000 ML IV ONE ×3 (11:45)
[2019-11-29] MEDS: POTASSIUM CHLORIDE 10MEQ/100ML 100 ML IV SCH ×2 (11:50→12:00)
[2019-11-29] MEDS ORDERED: POTASSIUM CHLORIDE 20MEQ/100ML 100 ML IV ONE (12:15)
[2019-11-29 12:26] LABS: BACTERIA,URINE FEW /HPF; EPITHELIAL CELLS,URINE MODERATE /LPF; WBC,URINE (MAN) 0-5 /HPF (0-5)
[2019-11-29] MEDS ORDERED: POTASSIUM CHLORIDE 10MEQ/100ML 100 ML IV SCH (12:30)
--- NOTE | 2019-11-29 13:03 | NUR ---
REPEAT LACTIC AND BMP/CA
[2019-11-29 13:23] LABS: ANION GAP 15.5 mmol/L (8-16); POTASSIUM 3.5 mmol/L (3.5-5.1)
[2019-11-29 13:28] LABS: CALCIUM 8.1 mg/dL (8.4-10.2); CREATININE, SERUM 2.41 mg/dL (0.72-1.25)
--- NOTE | 2019-11-29 13:34 | NUR ---
green sheet sepsis protocol done and on chart
--- NOTE | 2019-11-29 14:46 | Diagnostic Imaging Report ---
Exam: Chest one view Comparison: August 23, 2019 Clinical history: Chest pain Findings: There is no evidence of pulmonary consolidation, pleural effusion, or pneumothorax. The cardiac size is within normal limits. The regional osseous structures are unremarkable. Next Impression: 1. No radiographic evidence of acute cardiorespiratory disease. Signed by: Dr. Jeremy Eden MD on 11/29/2019 2:43 PM
--- NOTE | 2019-11-29 16:33 | NUR ---
called report, bp at 90 systolic, addressed bp and bs with md before taking pt upstairs. orders given.
[2019-11-29] MEDS ORDERED: SODIUM CHLORIDE 0.9% 1000ML 1,000 ML IV ONE ×2 (17:00→17:45)
[2019-11-29] MEDS ORDERED: DEXTROSE 50% SYRINGE 50 ML IV PRN (17:00)
[2019-11-29] MEDS ORDERED: INSULIN REGULAR, HUMAN 100 UNIT/1 ML 3ML VIAL ONE (17:01)
[2019-11-29] MEDS ORDERED: SODIUM CHLORIDE 0.9% 1000ML 1,000 ML ONE ×2 (17:01→18:34)
[2019-11-29] MEDS: INSULIN REGULAR, HUMAN 100 UNIT/1 ML 3ML VIAL SQ SCH ×2 (17:17→23:27)
--- NOTE | 2019-11-29 17:25 | NUR ---
pt updated plan of care, ivf's running and pt medicated. flu swab sent and lab to draw ammonia level.
[2019-11-29] MEDS ORDERED: INSULIN ASPART 70/30 100 UNITS/ML VIAL SC ONE (17:45)
[2019-11-29] MEDS ORDERED: INSULIN LISPRO 100 UNIT/1 ML 3ML VIAL SQ ONE (18:00)
--- NOTE | 2019-11-29 18:10 | History and Physical ---
CHIEF COMPLAINT: Altered mentation. HISTORY OF PRESENT ILLNESS: This is a 54-year-old white man, who was brought to [facility] Emergency Room via emergency medical services because of altered mentation. According to family members, the patient has been more confused over the last 24 hours. The patient voices no complaints. However, in the emergency room, the patient was found to have potassium of 2.3 and a BUN and creatinine of 30 and 1.47 respectively. When it was checked 2 hours later, the BUN and creatinine were 38 and 2.41 respectively. Lactic acid was elevated at 4.1, when checked a few hours later it was 2.2. Potassium on admission was 2.3. The patient's white blood cell count on admission was 10,300 with 74% segmenters. Hemoglobin was 10.5 g/dL. Chest x- ray was unremarkable. The patient was admitted for further evaluation and treatment. REVIEW OF SYSTEMS: GENERAL: Weight has been stable. No fever or chills. The patient has been confused over the last 24 hours according to the family members. HEENT: No headaches. No visual changes. CARDIOVASCULAR/RESPIRATORY: No chest pain. No shortness of breath or cough. GI: Denies any nausea, vomiting, or diarrhea. Denies any constipation. : Denies any UTI symptoms. NEUROMUSCULAR: No limb weakness or numbness, but he has chronic pain in his left lower leg from an old injury. PAST MEDICAL HISTORY: 1. Decompensated liver cirrhosis. 2. Chronic alcoholism (abstinence since 2016). 3. Chronic diastolic congestive heart failure. 4. Type 2 diabetes mellitus with neuropathy. 5. Obesity. 6. Hypothyroidism. 7. Chronic pain syndrome. 8. Hyperlipidemia. 9. Hypertensive heart disease. 10. Chronic pain in the left lower extremity secondary to an old traumatic injury. 11. Chronic bronchitis. 12. Tobacco abuse. ALLERGIES: PENICILLIN. FAMILY HISTORY: Noncontributory. SOCIAL HISTORY: He is , lives with . He is unemployed. The patient states he smokes tobacco on a regular basis. The patient states he was a heavy alcohol drinker, but quit in 2016. PAST SURGICAL HISTORY: 1. Multiple left lower extremity surgeries including skin and muscle grafting because of traumatic injury many years ago. 2. Right forearm muscle grafting. 3. Left ankle surgery. MEDICATIONS: Current home medications are: 1. Lactulose syrup 20 g twice a day. 2. Glargine insulin 120 units subcutaneous daily. 3. Oxycodone/acetaminophen 10/325 mg one pill twice daily for pain. 4. Omeprazole 40 mg daily. 5. Spiriva inhaler one puff daily. 6. Albuterol inhaler two puffs q.i.d. 7. Trulicity 1.5 mg subcutaneous weekly. The following medications were discontinued in August of 2019: 1. Furosemide. 2. Spironolactone. 3. Metformin. PHYSICAL EXAMINATION: GENERAL: He is awake and alert. He is slightly confused, but he is pleasant and cooperative. He does not appear to be in any obvious distress. VITAL SIGNS: Height 5 feet 8 inches, weighs 220 pounds, BMI 33. Blood pressure currently is 111/58, in the emergency room it got as low as 63/39; heart rate currently 68, respiratory rate 14, oxygen saturation 100% on room air, and temperature is 97.0. INTEGUMENT: Skin is warm and dry. No pallor, jaundice, or diaphoresis. HEENT: Anicteric sclerae with moist mucous membranes. NECK: Supple. CARDIOVASCULAR: Bradycardic rate, regular rhythm. LUNGS: No rales. No rhonchi or wheezes. ABDOMEN: Soft. No abdominal distention consistent with ascites appreciated. EXTREMITIES: No edema, but he does have obvious deformity of the left lower leg consistent with previous trauma and subsequent skin and muscle grafting. NEUROLOGIC: Intact. No gross deficits, but he has decreased pinprick sensation to plantar aspect of the feet secondary to neuropathy. DIAGNOSES: 1. Hepatic encephalopathy. 2. Decompensated liver cirrhosis. 3. Sepsis, likely. 4. Acute on chronic renal failure. 5. Type 2 diabetes mellitus with neuropathy. 6. Hypokalemia. PLAN: 1. Replete potassium level. 2. Intravenous fluids. 3. Follow lactic acid level. 4. Follow renal function and electrolytes. 5. We will start empiric intravenous antibiotics. I spent 75 minutes in the care of the this critically ill patient. MD KAI DodgeO/MODL /[id number] KAILA
[2019-11-29] MEDS: SODIUM CHLORIDE 0.9% 1000ML 1,000 ML IV SCH (18:34)
--- NOTE | 2019-11-29 20:10 | NUR ---
Received to 190 from ER. Placed on EKG, pulse ox & NBP for monitoring. Admission history, Initial admission assessment and vaccine history done. IV: NS @ 125ml/hr.
[2019-11-29] MEDS ORDERED: OXYCONTIN10 MG (20:27)
--- NOTE | 2019-11-29 21:30 | NUR ---
IV to LAC out. Moved IV fluid to RW.
[2019-11-30] VITALS (24 sets, daily range): BP systolic 84–163; BP diastolic 6–94
[2019-11-30] MEDS: SODIUM CHLORIDE 0.9% 1000ML 1,000 ML IV SCH ×4 (04:00→20:00)
[2019-11-30 05:08] LABS: BASOPHILS # (AUTO) 0.1 (0.0-0.1); BASOPHILS % 0.8 % (0.0-1.0); EOSINOPHILS # (AUTO) 0.3 (0.0-0.4); HEMATOCRIT 30.7 % (38.2-49.6); HEMOGLOBIN 10.1 g/dL (14.0-18.0); LYMPHOCYTES # (AUTO) 1.9 (1.0-3.2); MEAN CORPUSCULAR HEMOGLOBIN 27.6 pg (28-32); MEAN CORPUSCULAR HGB CONC 32.9 g/dL (31-35); MEAN CORPUSCULAR VOLUME 83.9 fL (81-99); MONOCYTES # (AUTO) 0.7 (0.2-0.8); MONOCYTES % 10.2 % (4.4-11.3); NEUTROPHILS # (AUTO) 4.3 (2.1-6.9); NEUTROPHILS % 58.9 % (38.7-80.0); PLATELET COUNT 155 x10e3/uL (140-360); RED BLOOD COUNT 3.66 x10e6/uL (4.3-5.7); RED CELL DISTRIBUTION WIDTH 14.4 % (11.7-14.4)
--- NOTE | 2019-11-30 05:17 | Consultation ---
DATE OF CONSULTATION: 11/29/2019 Pulmonary Critical Care Medicine Consult PRIMARY CARE PHYSICIAN: Dr. Alfonso Portillo. REASON FOR REFERRAL: Organ failure, ICU management. HISTORY OF PRESENT ILLNESS: Mr. Mason is a pleasant 54-year-old gentleman with altered mental status. The patient presented to [facility] on November 29, 2019 with strange feeling. Sugar per EMS ended up being greater than 400. The patient did not lose conscious, but had altered sensorium mildly. The patient was brought to the emergency room. The patient was found with creatinine of 2.4 above his baseline. Lactic acid 4.1. No definite fevers per history and no fevers here in the hospital. Blood pressure was 63/39. He was admitted to the ICU for aggressive treatment. Additional labs ammonia 53, CK 651, previously. Calcium level of 8.1 with albumin of 1.6. Urinalysis without any pyuria. Chest x-ray with clear lungs. PAST MEDICAL HISTORY: Liver cirrhosis; chronic alcoholism, quit in 2016; chronic diastolic CHF; diabetes with neuropathy; obesity; hypothyroid disorder; chronic pain; hyperlipidemia; hypertension; and chronic bronchitis. MEDICATIONS: Medication list reviewed per the chart record. Includes; albuterol, lactulose, omeprazole, and oxycodone 10 mg ER q.12 hours. ALLERGIES: PENICILLINS. SOCIAL HISTORY: The patient is a long-time smoker, half pack per day. The patient formally would drink 10 beers a day until he quit possibly in 2016 per his report in physician progress note. The patient formally used multiple substances for up to two years including IVDA. He used methamphetamines and cocaine in the past. He quit those long ago. 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 FAMILY HISTORY: Noncontributory. REVIEW OF SYSTEMS: GENERAL: No weight loss. HEENT: No floaters. ENDOCRINE: No adrenal crises. ENT: No mouth ulcers. PULMONARY: No asthma. CARDIAC: No recent heart attacks. GI: No previous transplant evaluation. : No blood in urine. DERMATOLOGIC: No rash. MUSCULOSKELETAL: Mild arthritis. NEUROLOGIC: No seizures. LABORATORY DATA: White count 10, hematocrit 31, and platelets 261. 7.44/53/33/64% saturation venous. Sodium 138, potassium 2.3, bicarbonate 21, BUN 30, creatinine 1.5, 2.41. Glucose 364. PHYSICAL EXAMINATION: VITAL SIGNS: Reviewed per the chart record. Blood pressure is better in one teens. GENERAL: In no acute distress, now alert and calm, talking. Mildly looks chronic. HEENT: Normocephalic and atraumatic. NECK: Supple. Throat midline. LUNGS: Bilateral air entry, limited, but clear. CARDIOVASCULAR: S1 and S2. No murmurs, rubs, or gallops. ABDOMEN: Soft and nontender. EXTREMITIES: No clubbing no cyanosis. There is 1+ edema to the legs. INTEGUMENT: No rash. No purpura. IMPRESSION AND PLAN: 1. Acute renal failure, appears it might be mix etiology. Suspect hepatorenal syndrome component, but additionally with a rise in creatinine further suggesting possible underlying ATN possibly from hypotension versus necrosis. 2. Chronic cirrhosis, alcoholic, with and without other etiologies. 3. Severe hypoalbuminemia. 4. Critical hyperglycemia, uncontrolled diabetes. 5. Critical hypokalemia. 6. Mild anemia with low-normal MCV. 7. History of diastolic congestive heart failure. 8. Diabetes with neuropathy. 9. Hypothyroidism. 10. Chronic pain. 11. Hyperlipidemia. 12. Hypertension. 13. History of chronic bronchitis. 14. History of tobacco abuse. I agree with IV fluid initially. The patient appears stable, we will decrease IV fluids. Albumin can be given additionally, if the patient has taken a lot of fluids. Check urine electrolytes given the pattern of BUN and creatinine. Empiric antibiotics. We will assess the patient requires any ultrasound of the liver again. Of note, the patient had ultrasound including liver in August 2019. Thank you very much Dr. Portillo for this consultation. Please call for any questions MD CHARLOTTE Feliciano/LEE /[id number] KAILA
[2019-11-30] MEDS: INSULIN REGULAR, HUMAN 100 UNIT/1 ML 3ML VIAL SQ SCH ×5 (05:20→21:21)
[2019-11-30 05:36] LABS: ALBUMIN 2.3 g/dL (3.5-5.0); ALBUMIN/GLOBULIN RATIO 0.6 (0.8-2.0); CALCIUM 8.1 mg/dL (8.4-10.2); CREATININE, SERUM 1.41 mg/dL (0.72-1.25)
[2019-11-30] MEDS: POTASSIUM CHLORIDE 10MEQ EA PO SCH (08:24)
[2019-11-30] MEDS ORDERED: POTASSIUM CHLORIDE 10MEQ EA PO ONE ×3 (09:20→13:00)
--- NOTE | 2019-11-30 09:48 | Progress Note ---
DATE: 11/30/2019 CHIEF COMPLAINT/HISTORY OF PRESENT ILLNESS: This is a 54-year-old white man, whose primary treatment diagnosis is sepsis of unknown origin and hepatic encephalopathy. The patient has a history of decompensated liver cirrhosis. Today, the patient's mentation improved dramatically. He voices no complaints. Blood work performed today revealed white blood cell count of 7200 with 58% segmented neutrophils. On admission, the patient's white blood cell count was 10,300 with 74% segmented neutrophils. Blood work today revealed BUN and creatinine of 29 and 1.41 respectively with serum bicarbonate of 31. The patient's potassium 3.0. The patient's total bilirubin is 0.7. AST and ALT are 43 and 28 respectively. Albumin is low at 2.3. REVIEW OF SYSTEMS: As per HPI. PHYSICAL EXAMINATION: GENERAL: He is awake, alert. He is fully oriented. Today, he is in no distress. He is currently in intensive care unit. VITAL SIGNS: Blood pressure 112/58, pulse 58, respiratory rate 14, oxygen saturation is 96% on 2 L oxygen, temperature 98.6, BMI 34. The patient's blood pressure at 4 o'clock this morning was 84/37. INTEGUMENT: Skin is warm and dry. No pallor, jaundice, or diaphoresis. No stigmata of liver disease appreciated such as spider angiomas. HEENT: Anicteric sclerae. Moist mucous membranes. NECK: Supple. CARDIOVASCULAR: Distant heart sounds. Bradycardic rate, regular rhythm. The patient has faint S3 gallop. LUNGS: No rales. No rhonchi or wheezes. ABDOMEN: Obese, benign. Difficult to assess for hepatosplenomegaly because of the patient's body habitus. EXTREMITIES: No edema or deformity. NEUROLOGIC: Intact. DIAGNOSES: 1. Decompensated liver cirrhosis. 2. Hepatic encephalopathy, resolving. 3. Sepsis (unknown origin). 4. Acute on chronic renal insufficiency secondary to acute tubular necrosis, resolving. 5. Type 2 diabetes mellitus with neuropathy. 6. Chronic diastolic congestive heart failure. 7. Obesity, BMI of 34. 8. Tobacco abuse. 9. Hypokalemia. PLAN: 1. Highly recommend tobacco cessation. 2. Recommend absolute alcohol abstinence. 3. We will follow electrolytes and hepatic transaminases. 4. We will replete potassium level. 5. Continue intravenous fluids. 6. We will repeat chest x-ray in the morning. 7. We will continue empiric intravenous antibiotics for the patient's sepsis. I spent 35 minutes in the care of this intensive care unit patient. MD DESIRE Dodge/LEE /[id number] KAILA
[2019-11-30] MEDS: CEFTRIAXONE SOD 1 GM/NS 50 ML 50 ML IV SCH ×2 (09:50→21:12)
[2019-11-30] MEDS: LACTULOSE SYRUP 20 GM/30 ML UDC PO SCH ×2 (09:50→16:30)
--- NOTE | 2019-11-30 11:44 | NUR ---
Pulmonary Critical Care Medicine DATE 11/30/2019 SUBJECTIVE More energy today Patient slept well Aaron in place Good urine output REVIEW OF SYSTEMS: No bleeding, no chest pain PHYSICAL EXAMINATION: VITAL SIGNS: Reviewed per the chart record GENERAL: No acute distress, alert and calm HEENT: Normocephalic, atraumatic. NECK: Supple. Throat midline. LUNGS: Bilateral air entry, clear. CARDIOVASCULAR: S1 S2. No murmurs, rubs, or gallops. ABDOMEN: Soft and nontender. EXTREMITIES: No clubbing, no cyanosis. 1-2+ edema to the legs. INTEGUMENT: No rash. No purpura. labs k 3.0, hco3 31, cr 1.41, wbc 7.3, hct 30, plt 155 IMPRESSION AND PLAN: 1. Acute renal failure, early hepatorenal component +/- ATN 2. Chronic ETOH cirrhosis +/- other cirrhosis 3. Severe hypoalbuminemia. 4. Critical hyperglycemia, uncontrolled diabetes. 5. Critical hypokalemia. 6. Mild anemia 7. Hx diastolic congestive heart failure. 8. Diabetes with neuropathy. 9. Hypothyroidism. 10. Chronic pain. 11. Hyperlipidemia. 12. Hypertension. 13. chronic bronchitis. 14. tobacco abuse. To discuss with nursing IVF initial given. As BP better and renal function is improving, will stop IVF in a few hours as creatinine is approaching its normal. -Subsequent diuresis expected Empiric antibiotics The patient had abdomen US August 2019 (non-remarkable for unexpectant findings) and is improving for now. k replete Thank you very much Dr. Portillo for this consultation. Please call for any questions
--- NOTE | 2019-11-30 13:29 | Diagnostic Imaging Report ---
HISTORY : Cirrhosis COMPARISON : 08/24/2019 COMMENT : Complete ultrasound examination of the abdomen was performed. The liver is enlarged measuring 20 cm in length along the right midclavicular line and coarsened in echo-texture without evidence of a focal mass. The liver has a nodular contour. A calcified gallstone is identified. There is no gallbladder wall thickening, pericholecystic fluid, or gallbladder distention. The biliary tract is within normal limits with the common bile duct measuring 5 mm in maximum diameter. The visualized portions of the pancreas are within normal limits. The spleen is is enlarged measuring 18 cm in length. The right kidney measures 4.8 cm and the left kidney 12.4 cm in maximum size. There is no evidence of cysts, masses, stones or hydronephrosis. The portal vein measures to a maximum of 1.4 cm in diameter. There is no ascites or pleural effusion. The visualized inferior vena cava, hepatic veins and abdominal aorta are within normal limits. IMPRESSION : 1. Cirrhosis with evidence of portal hypertension including a prominent portal vein and enlarged spleen. No focal hepatic mass is identified by ultrasound. 2. Cholelithiasis without ultrasonographic evidence of acute cholecystitis. Signed by: Antwon Young MD on 11/30/2019 1:27 PM
--- NOTE | 2019-11-30 20:59 | NUR ---
CALL PLACED TO DR BARAJAS REGARDING BS [id number]. ORDERS TO GIVE REGULAR INSULIN 35U SQ AND LANTUS 100 U SQ NOW, LANTUS 100U SQ TO BE GIVEN DAILY AT 0900. STOP IVF
[2019-11-30] MEDS ORDERED: INSULIN GLARGINE 100 UNITS/ML VIAL SQ SCH (21:00)
[2019-12-01] VITALS (11 sets, daily range): BP systolic 116–154; BP diastolic 53–84
[2019-12-01 05:32] LABS: BASOPHILS # (AUTO) 0.1 (0.0-0.1); BASOPHILS % 0.9 % (0.0-1.0); EOSINOPHILS # (AUTO) 0.3 (0.0-0.4); EOSINOPHILS % 3.7 % (0.0-6.0); HEMATOCRIT 33.3 % (38.2-49.6); HEMOGLOBIN 10.8 g/dL (14.0-18.0); LYMPHOCYTES # (AUTO) 1.6 (1.0-3.2); LYMPHOCYTES % 21.1 % (18.0-39.1); MEAN CORPUSCULAR HEMOGLOBIN 27.6 pg (28-32); MEAN CORPUSCULAR HGB CONC 32.4 g/dL (31-35); MEAN CORPUSCULAR VOLUME 84.9 fL (81-99); MONOCYTES # (AUTO) 0.8 (0.2-0.8); MONOCYTES % 9.9 % (4.4-11.3); NEUTROPHILS # (AUTO) 4.8 (2.1-6.9); PLATELET COUNT 160 x10e3/uL (140-360); RED BLOOD COUNT 3.92 x10e6/uL (4.3-5.7); RED CELL DISTRIBUTION WIDTH 14.3 % (11.7-14.4)
[2019-12-01 05:51] LABS: ALANINE AMINOTRANSFERASE 42 IU/L (0-55); ALBUMIN 2.4 g/dL (3.5-5.0); ALBUMIN/GLOBULIN RATIO 0.5 (0.8-2.0); ALKALINE PHOSPHATASE 231 IU/L (40-150); ANION GAP 12.6 mmol/L (8-16); BLOOD UREA NITROGEN 21 mg/dL (7-26); BUN/CREATININE RATIO 18 (6-25); CALCIUM 9.1 mg/dL (8.4-10.2); CARBON DIOXIDE 27 mmol/L (22-29); CHLORIDE 102 mmol/L (98-107); CREATININE, SERUM 1.17 mg/dL (0.72-1.25); EST GLOMERULAR FILTRATION RATE > 60 ML/MIN (60-); GLUCOSE 165 mg/dL (74-118); POTASSIUM 3.6 mmol/L (3.5-5.1); SODIUM 138 mmol/L (136-145)
--- NOTE | 2019-12-01 08:33 | Progress Note ---
DATE: 12/01/2019 CHIEF COMPLAINT/HISTORY OF PRESENT ILLNESS: This is a 54-year-old white man, whose primary treating diagnosis is hepatic encephalopathy and decompensated liver cirrhosis. The patient voiced no complaints today other than neuropathic type pain. The patient had an abdominal ultrasound performed yesterday that revealed evidence of cirrhosis with portal hypertension. No obvious ascites was appreciated. Also, no hepatic masses were appreciated either. Blood work today revealed white blood cell count of 7500 with 64% segmenters. Hemoglobin is 10.8 g/dL. The patient's BUN and creatinine 21 and 1.17 respectively. The patient's AST and ALT were 76 and 42 respectively. The patient's serum ammonia level today is elevated at 95. The patient is currently on lactulose 20 g twice a day and he is experiencing loose stools. REVIEW OF SYSTEMS: As per HPI. PHYSICAL EXAMINATION: GENERAL: He is awake, alert. He is more oriented. He is very pleasant, and cooperative on exam. He is in no obvious distress. VITAL SIGNS: Blood pressure 116/53, pulse 66, respiratory rate is 14, oxygen saturation 97% on room air, temperature 97.9, BMI is 34. INTEGUMENT: Skin is warm and dry. No pallor, jaundice, or diaphoresis. HEENT: Anicteric sclerae. Moist mucous membranes. NECK: Supple. CARDIOVASCULAR: Distant heart sounds. Regular rate and rhythm with an S3 gallop. LUNGS: No rales. No rhonchi. No wheezes. ABDOMEN: Obese and benign. No obvious fluid wave is appreciated. Due to the patient's body habitus, hepatosplenomegaly cannot be appreciated. EXTREMITIES: No edema, but he does have deformity in his left lower leg from a previous traumatic injury. NEUROLOGIC: Intact except he has no pinprick sensation in the plantar aspect of bilateral feet. DIAGNOSES: 1. Decompensated liver cirrhosis. 2. Hepatic encephalopathy, resolving. 3. Type 2 diabetes mellitus with neuropathy. 4. Ohhnt-tv-eqgucyb renal failure secondary to acute tubular necrosis, resolving. 5. Obesity, BMI 34. 6. Sepsis, resolving. PLAN: 1. Follow blood cultures. 2. Continue intravenous antibiotics. 3. Continue oral lactulose to treat patient's hepatic encephalopathy. 4. Transferred the patient to Medical-Surgical floor. 5. Glucose control. I spent 35 minutes in the care of this intensive care unit patient. MD DESIRE Dodge/LEE /[id number] MTDAngelika
[2019-12-01] MEDS: OXYCODONE/ACETAMINOPHEN 5-325 1 EACH TABLET PO PRN ×2 (08:34→20:15)
[2019-12-01] MEDS: POTASSIUM CHLORIDE 10MEQ EA PO SCH (08:35)
[2019-12-01] MEDS: CEFTRIAXONE SOD 1 GM/NS 50 ML 50 ML IV SCH ×2 (08:35→22:00)
[2019-12-01] MEDS: VANCOMYCIN 1GM/NS 250 ML 250 ML IV SCH ×2 (08:35→22:00)
[2019-12-01] MEDS: LACTULOSE SYRUP 20 GM/30 ML UDC PO SCH ×2 (08:35→16:47)
[2019-12-01] MEDS: INSULIN REGULAR, HUMAN 100 UNIT/1 ML 3ML VIAL SQ SCH ×4 (08:36→22:04)
--- NOTE | 2019-12-01 08:45 | Diagnostic Imaging Report ---
Exam: Chest one view Comparison: November 29, 2019 Clinical history: Infection Findings: There is no evidence of pulmonary consolidation, pleural effusion, or pneumothorax. The cardiac size is within normal limits. The regional osseous structures are unremarkable. Impression: 1. No radiographic evidence of acute cardiorespiratory disease. Signed by: Dr. Jeremy Eden MD on 12/01/2019 8:42 AM
[2019-12-01] MEDS ORDERED: INSULIN GLARGINE 100 UNITS/ML VIAL SQ SCH (09:00)
--- NOTE | 2019-12-01 12:03 | NUR ---
Nutrition Screen Note RD Recommendation for Physician: -Continue current diet per MD. Plan of Care: RD following, monitoring for tolerance and adequacy. Education provided. Nutrition reason for involvement: (RN consult)-DM education Primary Diagnose(s): Septic shock PMH: PAST MEDICAL HISTORY: 1. Decompensated liver cirrhosis. 2. Chronic alcoholism (abstinence since 2016). 3. Chronic diastolic congestive heart failure. 4. Type 2 diabetes mellitus with neuropathy. 5. Obesity. 6. Hypothyroidism. 7. Chronic pain syndrome. 8. Hyperlipidemia. 9. Hypertensive heart disease. 10. Chronic pain in the left lower extremity secondary to an old traumatic injury. 11. Chronic bronchitis. 12. Tobacco abuse. Ht: 68in Wt:228 lb BMI: 34.7 kg/m2 IBW:[address] Assessment: (12/01) 54 YOM admitted for septic shock with PMH listed above. The pt was seen in the ICU getting ready to consume his lunch. The pt reported his appetite has been fine and denied any recent weight loss. The pt denied N/V/C/D/chewing or swallowing issues as well as any food allergies. Pt was discussed during MDR rounds, nurse wanted RD to see the pt d/t high BS. Educated the pt regarding DM and gave educational handout .The pt verbalized understanding and had no more further questions. Chart reviewed. Labs and meds reviewed. POC GM: 322. Will continue to monitor. Current Diet: 2000 ADA diet Malnutrition Evaluation 12/01 The patient does not meet criteria for a specified degree of malnutrition at this time. Will re-evaluate at follow-up as appropriate. Diet Education Needs Assessment: Diet education indicated, pt accepted Diet Adequacy: Meeting calorie needs, Meeting protein needs Learner(s): pt Barriers: none Cultural/Language Modifications:none Readiness: acceptance Method: discussion, handout Topics:DM diet, food label, meal planning, foods recommended and not recommended, healthy DM diet tips, lower BS tips Understanding/Compliance: verbalized understanding, anticipate fair compliance Nutrition Care Level: low Signed: Corin Edwards RD, LD
--- NOTE | 2019-12-01 12:50 | NUR ---
Pulmonary Critical Care Medicine DATE 12/01/2019 SUBJECTIVE creatinine improving again naveed in off ivf calm, more energy BCX (+) REVIEW OF SYSTEMS: No bleeding, no chest pain PHYSICAL EXAMINATION: VITAL SIGNS: Reviewed per the chart record GENERAL: No acute distress, alert and calm HEENT: Normocephalic, atraumatic. NECK: Supple. Throat midline. LUNGS: Bilateral air entry, clear. CARDIOVASCULAR: S1 S2. No murmurs, rubs, or gallops. ABDOMEN: Soft and nontender. EXTREMITIES: No clubbing, no cyanosis. 1+ leg edema INTEGUMENT: No rash. No purpura. labs k k 3.6, cr 1.2. wbc 7.5, hct 33 IMPRESSION AND PLAN: 1. Acute renal failure, early hepatorenal component +/- ATN 2. Chronic ETOH cirrhosis +/- other cirrhosis 3. Severe hypoalbuminemia. 4. Critical hyperglycemia, uncontrolled diabetes. 5. Critical hypokalemia. 6. Mild anemia 7. Hx diastolic congestive heart failure. 8. Diabetes with neuropathy. 9. Hypothyroidism. 10. Chronic pain. 11. Hyperlipidemia. 12. Hypertension. 13. chronic bronchitis. 14. tobacco abuse. IVF dc Empiric antibiotics follow cultures, GPCs growing so far k replete d/c naveed can leave the ICU Thank you very much Dr. Portillo for this consultation. Please call for any questions
[2019-12-01] MEDS ORDERED: SODIUM CHLORIDE 0.9% 250ML 250 ML ONE (21:25)
[2019-12-01] MEDS: INSULIN GLARGINE 100 UNITS/ML VIAL SQ SCH (23:15)
[2019-12-02 04:30] VITALS: BP 126/50
[2019-12-02 04:54] LABS: BASOPHILS # (AUTO) 0.1 (0.0-0.1); BASOPHILS % 1.2 % (0.0-1.0); EOSINOPHILS # (AUTO) 0.3 (0.0-0.4); EOSINOPHILS % 3.7 % (0.0-6.0); HEMATOCRIT 34.5 % (38.2-49.6); LYMPHOCYTES # (AUTO) 1.9 (1.0-3.2); LYMPHOCYTES % 23.9 % (18.0-39.1); MEAN CORPUSCULAR HEMOGLOBIN 27.3 pg (28-32); MEAN CORPUSCULAR HGB CONC 31.9 g/dL (31-35); MEAN CORPUSCULAR VOLUME 85.6 fL (81-99); MONOCYTES # (AUTO) 0.7 (0.2-0.8); NEUTROPHILS # (AUTO) 4.8 (2.1-6.9); NEUTROPHILS % 61.6 % (38.7-80.0); PLATELET COUNT 170 x10e3/uL (140-360); RED BLOOD COUNT 4.03 x10e6/uL (4.3-5.7); RED CELL DISTRIBUTION WIDTH 14.4 % (11.7-14.4)
[2019-12-02 05:15] LABS: ALANINE AMINOTRANSFERASE 45 IU/L (0-55); ALBUMIN 2.6 g/dL (3.5-5.0); ALBUMIN/GLOBULIN RATIO 0.6 (0.8-2.0); ALKALINE PHOSPHATASE 234 IU/L (40-150); ANION GAP 14.3 mmol/L (8-16); BLOOD UREA NITROGEN 16 mg/dL (7-26); BUN/CREATININE RATIO 16 (6-25); CALCIUM 9.7 mg/dL (8.4-10.2); CARBON DIOXIDE 24 mmol/L (22-29); CHLORIDE 104 mmol/L (98-107); EST GLOMERULAR FILTRATION RATE > 60 ML/MIN (60-); GLUCOSE 76 mg/dL (74-118); POTASSIUM 3.3 mmol/L (3.5-5.1); SODIUM 139 mmol/L (136-145)
[2019-12-02] MEDS: OXYCODONE/ACETAMINOPHEN 5-325 1 EACH TABLET PO PRN (06:30)
[2019-12-02 07:00] VITALS: BP 145/71
[2019-12-02] MEDS: INSULIN REGULAR, HUMAN 100 UNIT/1 ML 3ML VIAL SQ SCH (07:33)
[2019-12-02] MEDS: INSULIN GLARGINE 100 UNITS/ML VIAL SQ SCH (07:33)
[2019-12-02 07:54] VITALS: BP 145/71
[2019-12-02] MEDS: POTASSIUM CHLORIDE 10MEQ EA PO SCH (08:21)
[2019-12-02] MEDS: LACTULOSE SYRUP 20 GM/30 ML UDC PO SCH (08:21)
[2019-12-02] MEDS: CEFTRIAXONE SOD 1 GM/NS 50 ML 50 ML IV SCH (08:21)
[2019-12-02] MEDS: VANCOMYCIN 1GM/NS 250 ML 250 ML IV SCH (08:21)
[2019-12-02] MEDS ORDERED: POTASSIUM CHLORIDE 10MEQ EA PO NR (10:15)
--- NOTE | 2019-12-02 10:33 | Discharge Summary ---
ADMIT DIAGNOSES: 1. Hepatic encephalopathy. 2. Decompensated liver cirrhosis. 3. Sepsis, likely. 4. Zttal-db-tpxhtuf renal failure. 5. Type 2 diabetes mellitus with neuropathy. 6. Hypokalemia. DISCHARGE DIAGNOSES: 1. Sepsis secondary to Staphylococcus epidermidis bacteremia, resolved. 2. Staphylococcus epidermidis bacteremia, resolving. 3. Hepatic encephalopathy, resolved. 4. Decompensated liver cirrhosis. 5. Zaomy-ch-urfvozq renal failure secondary to acute tubular necrosis, resolved. 6. Type 2 diabetes mellitus with neuropathy. 7. Hypokalemia, resolved. 8. Chronic bronchitis. 9. Chronic diastolic congestive heart failure. HOSPITAL COURSE: This is a 54-year-old white man, who was initially admitted to [facility] with diagnosis of sepsis and lxued-hk-pckglkc renal failure. This gentleman has a history of decompensated liver cirrhosis. He was also diagnosed with hepatic encephalopathy on admission that was likely precipitated by sepsis. During this hospitalization, the patient had blood cultures done, which revealed the presence of Staphylococcus epidermidis. The patient improved clinically with intravenous ceftriaxone and vancomycin during this hospital stay. The patient's sepsis resolved completely with intravenous fluids and antibiotics. The patient's entire hospitalization was in the intensive care unit. The patient was also treated for his hypokalemia with oral potassium chloride. The patient underwent abdominal ultrasound during this hospitalization, which revealed findings consistent with liver cirrhosis as well as portal hypertension. The ultrasound also revealed cholelithiasis without any clear evidence of acute cholecystitis. Moreover, the ultrasound revealed a large spleen, but no focal hepatic mass was identified. Also, no obvious ascites was appreciated on abdominal ultrasound. The patient's glucose was controlled with glargine insulin in the form of Lantus 75 units subcutaneous twice a day. During this hospitalization, the patient's BUN and creatinine did get as high as 38 and 2.41 respectively. On day of discharge, the patient's BUN and creatinine were 16 and 1.00. Also on day of discharge, ammonia level was 67. On day of discharge, AST and ALT were 79 and 45 respectively, and albumin was 2.6. The patient's total bilirubin was 0.7 on discharge. CONDITION ON DISCHARGE: Stable. DISCHARGE MEDICATIONS: 1. Glargine insulin in the form of Toujeo 100 units subcutaneous daily. 2. Lactulose 20 g daily. 3. Potassium chloride 40 mEq daily. 4. Albuterol inhaler 2 puffs q.i.d. as needed for shortness of breath and wheezing. 5. Spiriva inhaler 1 puff daily. 6. Percocet 5/325 two pills daily as needed for severe pain. 7. Doxycycline 100 mg one p.o. b.i.d. for 10 days. 8. Omeprazole 40 mg daily. The patient was instructed to not restart the following medications until further notice, furosemide, spironolactone, metformin, and Trulicity. FOLLOWUP INSTRUCTIONS: The patient was instructed to follow up with his primary care physician namely myself, Dr. Alfonso Portillo within 1 week. Tobacco cessation and absolute alcohol abstinence were recommended to the patient. MD DESIRE Dodge/LEE /[id number] [id number]
[2019-12-02] MEDS ORDERED: LACTULOSE20 GM/30 M PO (10:41)
[2019-12-02] MEDS ORDERED: DOXYCYCLINE MO100 M1 PO (10:44)
[2019-12-02] MEDS ORDERED: POTASSIUM600 MG PO (10:45)
--- NOTE | 2019-12-02 11:14 | NUR ---
Pulmonary Critical Care Medicine DATE 12/02/2019 SUBJECTIVE BCX with staph epidermidis no hemodynamic instability REVIEW OF SYSTEMS: No bleeding, no chest pain PHYSICAL EXAMINATION: VITAL SIGNS: Reviewed per the chart record GENERAL: No acute distress, alert and calm HEENT: Normocephalic, atraumatic. NECK: Supple. Throat midline. LUNGS: Bilateral air entry, clear. CARDIOVASCULAR: S1 S2. No murmurs, rubs, or gallops. ABDOMEN: Soft and nontender. EXTREMITIES: No clubbing, no cyanosis. 1+ leg edema INTEGUMENT: No rash. No purpura. IMPRESSION AND PLAN: 1. Acute renal failure, early hepatorenal component +/- ATN. resolved 2. Chronic ETOH cirrhosis +/- other cirrhosis 3. Severe hypoalbuminemia. 4. Critical hyperglycemia, uncontrolled diabetes. better 5. Critical hypokalemia. resolved 6. Mild anemia 7. Hx diastolic congestive heart failure. 8. Diabetes with neuropathy. 9. Hypothyroidism. 10. Chronic pain. 11. Hyperlipidemia. 12. Hypertension. 13. chronic bronchitis. 14. tobacco abuse. adjust antibiotics follow cultures--> staph epidermidis. ambulate possible discharge if continues to improve Thank you very much Dr. Portillo for this consultation. Please call for any questions
== END 2019-12-02 12:35 | disposition home or self-care (01) | DRG 871 ==
LOC: ER 10:17 → ERHOLD 12:48 → ICU 20:09
PROVIDERS: ADMIT Internal Medicine; ATTEND Internal Medicine
DX: A41.1 Sepsis due to other specified staphylococcus (principal); N17.0 Acute kidney failure with tubular necrosis; N17.9 Acute kidney failure, unspecified; N18.4 Chronic kidney disease, stage 4 (severe); K72.90 Hepatic failure, unspecified without coma; E87.6 Hypokalemia; E11.65 Type 2 diabetes mellitus with hyperglycemia; E11.40 Type 2 diabetes mellitus with diabetic neuropathy, unspecified; K70.30 Alcoholic cirrhosis of liver without ascites; E03.9 Hypothyroidism, unspecified; E11.22 Type 2 diabetes mellitus with diabetic chronic kidney disease; Z87.891 Personal history of nicotine dependence; E88.09 Other disorders of plasma-protein metabolism, not elsewhere classified; E66.9 Obesity, unspecified; Z68.34 Body mass index [BMI] 34.0-34.9, adult; I12.9 Hypertensive chronic kidney disease with stage 1 through stage 4 chronic kidney disease, or unspecified chronic kidney disease
CPT/HCPCS: 36415; 51700; 71045; 76700; 80048; 80053; 81001; 82140; 82550; 82948; 83605; 85025; 87040; 87071; 87186; 87205; 87400; 96372; 99285; J0692; J0696; J1815; J1817; J3370; J3480; J7030; J7050

== ENCOUNTER 2020-02-07 14:35 | Emergency (ER) | payer OTHER ==
[~2020-02-07] VITALS: Ht 172.7 cm; Wt 103.4 kg
[~2020-02-07 14:35] MED LIST changes: +DOXYCYCLINE MO100 M1 PO; +OXYCONTIN10 MG; +POTASSIUM600 MG PO
--- NOTE | 2020-02-07 14:45 | NUR ---
PATIENT REFUSING TREATMENT AT THIS TIME; PATIENT STATES "I TOOK TOO MUCH OF MY MEDICATION, THAT IS NOT A CRIME. I AM FINE AND I DO NOT WANT TO BE HERE". EMS REPORTED GIVING PATIENT INTRANASAL NARCAN PRIOR TO ARRIVAL AND THEN THE PATIENT WOKE - PREVIOUSLY, PATIENT HAD BEEN VERY ALTERED. EMS ALSO REPORTED THAT THE PATIENTS BLOOD GLUCOSE WAS 600. PATIENT STATES THAT "MY BLOOD SUGAR IS ALWAYS HIGH, AND I DO NOT NEED TO DO ANYTHING ABOUT IT". PATIENT STATING "I DO NOT WANT TO BE HERE - YOU NEED TO TAKE ME BACK TO MY CAR!" EMS GAVE NURSING A BOTTLE OF OXYCODONE 10/325 MG PRESCIBED TO PATIENT AND PICKED UP TODAY. ORIGINAL PRESCRIPTION WAS FOR 114 TABLETS. MEDICATION WAS TAKEN TO PHARMACY BY LIANG ARANDA, DIRECTOR [employer], TO BE COUNTED - 109 TABLETS WERE IN THE BOTTLE. PATIENT STATES THAT HE DOES NOT KNOW HOW MANY TABLETS HE TOOK, BUT THAT HE CAN TAKE WHATEVER HE WANTS.
--- NOTE | 2020-02-07 14:50 | NUR ---
PATIENT REFUSING TO STAY AT THIS TIME; ZULAY MACIAS AND DR PERAZA TO SPEAK WITH PATIENT AT THIS TIME. PATIENT STILL REFUSING CARE OR TESTS.
--- NOTE | 2020-02-07 14:55 | NUR ---
PATIENT OK TO LEAVE WITH [facility] PER ER MD DR PERAZA. PATIENT NOTIFIED HIS MOTHER AT THIS TIME TO COME AND GET HIM.
--- NOTE | 2020-02-07 15:00 | NUR ---
PATIENT SIGNED AMA PAPERWORK AT THIS TIME - PATIENT AND MOTHER INFORMED OF RISKS OF LEAVING AMA AT THIS TIME, AND THAT THE PATIENT HAD TAKEN 5 TABLETS OF OXYCODONE 10/325 MG PRIOR TO ARRIVAL. PATIENT'S MOTHER STATES "THAT DOES NOT SURPRISE ME, HE DOES THIS ALL THE TIME". PATIENTS' MOTHER ALSO STATED THAT HIS BLOOD SUGAR IS ALWAYS HIGH BECAUSE "HE JUST DOES WHATEVER HE WANTS TO DO". PATIENT AMBULATORY WITH STEADY GAIT OUT THE EMERGENCY ROOM DOORS WITH MOTHER
== END 2020-02-07 15:00 | disposition left against medical advice (07) ==
LOC: ER 14:35
DX: R41.82 Altered mental status, unspecified (principal); F11.129 Opioid abuse with intoxication, unspecified

== ENCOUNTER 2021-07-20 12:58 | Emergency (ER) | payer OTHER ==
[~2021-07-20] VITALS: Ht 172.7 cm; Wt 103.4 kg
[2021-07-20] MEDS ORDERED: MORPHINE SULFATE INJ 4 MG/ML INJ 1ML IV PRN (14:15)
[2021-07-20 14:53] LABS: BASOPHILS # (AUTO) 0.1 (0.0-0.1); BASOPHILS % 0.9 % (0.0-1.0); EOSINOPHILS # (AUTO) 0.2 (0.0-0.4); EOSINOPHILS % 2.5 % (0.0-6.0); HEMATOCRIT 34.5 % (38.2-49.6); HEMOGLOBIN 10.8 g/dL (14.0-18.0); LYMPHOCYTES % 10.5 % (18.0-39.1); MEAN CORPUSCULAR HGB CONC 31.3 g/dL (31-35); MEAN CORPUSCULAR VOLUME 92.7 fL (81-99); MONOCYTES # (AUTO) 0.9 (0.2-0.8); MONOCYTES % 8.9 % (4.4-11.3); NEUTROPHILS # (AUTO) 7.3 (2.1-6.9); NEUTROPHILS % 76.3 % (38.7-80.0); PLATELET COUNT 291 x10e3/uL (140-360); RED BLOOD COUNT 3.72 x10e6/uL (4.3-5.7); RED CELL DISTRIBUTION WIDTH 15.9 % (11.7-14.4)
[2021-07-20 15:05] LABS: INR 1.08; PROTHROMBIN TIME 14.2 seconds (11.9-14.5)
[2021-07-20 15:12] LABS: ALBUMIN 1.9 g/dL (3.5-5.0); ALBUMIN/GLOBULIN RATIO 0.4 (0.8-2.0); ANION GAP 10.9 mmol/L (8-16); CALCIUM 7.8 mg/dL (8.4-10.2); CREATININE, SERUM 1.02 mg/dL (0.72-1.25); POTASSIUM 3.9 mmol/L (3.5-5.1)
[2021-07-20] MEDS ORDERED: ALBUMIN 25% 12.5GM 50ML 200 ML IV ONE (15:56)
[2021-07-20] MEDS ORDERED: SODIUM CHLORIDE 0.9% 1000ML 1,000 ML IV SCH (16:45)
[2021-07-20] MEDS ORDERED: ALBUMIN 25% 12.5GM 50ML 100 ML IV ONE (17:10)
[2021-07-20 19:26] LABS: BODY FLUID APPEARANCE CLOUDY; BODY FLUID COLOR STRAW; BODY FLUID TYPE PERITONEAL
[2021-07-20 19:34] LABS: RBC,BODY FLUID < 2000 cells/uL; WBC,BODY FLUID 78 cells/uL
[2021-07-20 20:41] LABS: LYMPHOCYTES,BODY FLUID 4 %; MONO/MACROPHG,BODY FLUID 83 %; NEUTROPHILS,BODY FLUID 4 %
[2021-07-20 20:42] LABS: OTHER CELLS,BODY FLUID 9 %
== END 2021-07-20 18:48 | disposition home or self-care (01) ==
LOC: ER 13:02
DX: R18.8 Other ascites (principal); E87.70 Fluid overload, unspecified; M79.604 Pain in right leg; E11.9 Type 2 diabetes mellitus without complications; I10 Essential (primary) hypertension; K76.9 Liver disease, unspecified; K21.9 Gastro-esophageal reflux disease without esophagitis; F41.9 Anxiety disorder, unspecified; Z20.822 Contact with and (suspected) exposure to COVID-19; Z86.73 Personal history of transient ischemic attack (TIA), and cerebral infarction without residual deficits
CPT/HCPCS: 36415; 49083; 73590; 80053; 84157; 85025; 85610; 86140; 87040; 87070; 87205; 88112; 88305; 89051; 99284; J2270; U0002

== ENCOUNTER 2021-07-30 16:47 | Emergency (ER) | payer OTHER ==
[~2021-07-30] VITALS: Ht 172.7 cm; Wt 103.4 kg
== END 2021-07-30 18:15 | disposition home or self-care (01) ==
LOC: ER 17:52
DX: R18.8 Other ascites (principal); I10 Essential (primary) hypertension; E11.9 Type 2 diabetes mellitus without complications; K76.9 Liver disease, unspecified; K21.9 Gastro-esophageal reflux disease without esophagitis; F41.9 Anxiety disorder, unspecified; Z86.73 Personal history of transient ischemic attack (TIA), and cerebral infarction without residual deficits
CPT/HCPCS: 93005; 99282